=== PATIENT | male | born 1945 | race Caucasian/White ===

== ENCOUNTER 2017-04-26 14:02 | Outpatient (CLI) | payer MEDICARE, OTHER ==
--- NOTE | 2017-04-26 16:12 | RAD ---
MODIFIED BARIUM SWALLOW PERFORMED WITH SPEECH THERAPIST 04/26/17 HISTORY: Dysphagia with weight loss. History of previous cervical fusion. Patient was given thin barium by spoon and cup as well as nectar by spoon. Showed persistent residue , particularly in the vallecular region. There was penetration and aspiration with thin liquid and p enetration and possibly some minimal aspiration with the nectar thick liquid. IMPRESSION: Evidence of penetration and aspiration as discussed above. POS: EMELIA
== END 2017-04-26 14:03 | disposition home or self-care (01) ==
LOC: RAD 14:02
PROVIDERS: ATTEND Internal Medicine Gastroenterology
DX: R13.10 Dysphagia, unspecified (principal)
CPT/HCPCS: 74230; G8996-GN-CM; G8997-GN-CK

== ENCOUNTER 2017-05-08 07:58 | Outpatient (CLI) | payer MEDICARE, OTHER ==
[2017-05-08] MEDS ORDERED: Gadobenate Dimeglumine 529 MG/1 ML (20ML VIAL) ONE (09:00)
--- NOTE | 2017-05-08 10:41 | MRI ---
BRAIN MRI WITH AND WITHOUT CONTRAST: DATE: 08/08/16. COMPARISON: None. HISTORY: Lymphoma, difficulty swallowing. TECHNIQUE: Multiplanar, multisequence MR imaging of the brain provided with and without contrast. FINDINGS: The diffusion weighted imaging demonstrates no evidence for acute infarction. The axial gradient echo imaging demonstrates no evidence for intracranial hemorrhage. Incidental note is made of a cavum septum pellucidum. There are multiple subcentimeter scattered foci of increased signal intensity within the periventric ular deep and subcortical white matter, evidence of small-vessel disease. There is mild diffuse cer ebral volume loss. The regional bone marrow signal intensity appears within normal limits. The axial T2 weighted imaging demonstrates unremarkable signal intensity within the paranasal sinuse s and mastoid air cells. Arterial flow voids at the axial level of the skull base appear grossly un remarkable on the T2 weighted imaging. The post-contrast imaging demonstrates no abnormal enhanceme nt within the brain parenchyma. IMPRESSION: No acute findings. Small-vessel disease and mild cerebral volume loss noted. POS: [facility]
== END 2017-05-08 07:59 | disposition home or self-care (01) ==
LOC: SCSMRI 07:58
PROVIDERS: ATTEND Student in an Organized Health Care Education/Training Program
DX: R13.10 Dysphagia, unspecified (principal); R47.9 Unspecified speech disturbances; R53.83 Other fatigue; Z85.79 Personal history of other malignant neoplasms of lymphoid, hematopoietic and related tissues; R06.02 Shortness of breath; R53.1 Weakness; E53.8 Deficiency of other specified B group vitamins; E51.9 Thiamine deficiency, unspecified; E53.1 Pyridoxine deficiency; E55.9 Vitamin D deficiency, unspecified
CPT/HCPCS: 36415; 70553; 80053; 82164; 82306; 82550; 82607; 84155; 84165; 84207; 84425; 84443; 85025; 85652; 86038; 86140; 86334; 86592; 86618; A9579

== ENCOUNTER 2017-05-12 08:09 | Observation (INO) | payer MEDICARE, OTHER ==
[2017-05-12] MEDS ORDERED: CEFAZOLIN/Water 2 GM/20 ML SYRINGE ONE (08:53)
[2017-05-12] MEDS ORDERED: Promethazine HCl 25 MG/ML VIAL SLOW IVP PRN (10:47)
[2017-05-12] MEDS ORDERED: Ondansetron HCl/PF 4 MG/2 ML Vial IVP PRN (10:47)
[2017-05-12] MEDS ORDERED: Promethazine HCl 25 MG/ML VIAL IM PRN (10:47)
[2017-05-12] MEDS: Dextrose 5 % And 0.9 % NaCl 1,000 ML IV SCH (14:40)
[2017-05-12] MEDS ORDERED: Pancrelipase DR 12000 1 CAP FS PRN (15:39)
[2017-05-12] MEDS ORDERED: Sodium Bicarbonate Tab 325 MG TAB PER TUBE PRN (15:39)
[2017-05-12] MEDS ORDERED: Ondansetron ODT 4 MG TAB PO PRN (15:51)
[2017-05-12 15:56] VITALS: BMI 22.8
[2017-05-12] MEDS ORDERED: Amlodipine 5 MG TAB PER TUBE SCH (16:45)
[2017-05-12] MEDS: Tamsulosin HCl 0.4 MG CAP PO SCH (20:54)
[2017-05-12] MEDS: TICAGRELOR 90 MG TABLET PO SCH (20:54)
[2017-05-13] MEDS: Dextrose 5 % And 0.9 % NaCl 1,000 ML IV SCH ×2 (01:07→14:53)
[2017-05-13] MEDS: Levothyroxine Sodium 75 MCG TAB PO SCH (05:23)
[2017-05-13] MEDS ORDERED: Mirtazapine 15 MG TAB PO SCH (09:00)
[2017-05-13] MEDS: Aspirin 81 mg Enteric Coated Tablet PO SCH (09:04)
[2017-05-13] MEDS: Multivitamin W/ Minerals 1 TAB PO SCH (09:04)
[2017-05-13] MEDS: Venlafaxine HCl XR 75 MG CAP PO SCH (09:05)
[2017-05-13] MEDS: Amlodipine 5 MG TAB PO SCH (09:05)
[2017-05-13] MEDS: Bupropion 150 MG XL TAB PO SCH (09:05)
[2017-05-13] MEDS: TICAGRELOR 90 MG TABLET PO SCH ×2 (09:07→20:47)
[2017-05-13 13:06] LABS: #Basophils 0.1 thou/uL (0.0-0.2); #Eosinphils 0.1 thou/uL (0.0-0.7); #Monocytes 0.3 thou/uL (0.11-0.59); #Neutrophils 1.7 thou/uL (1.40-6.50); %Basophils 1.8 % (0.0-1.0); %Lymphocytes 32.3 % (21.0-51.0); %Monocytes 9.2 % (0.0-10.0); Hematocrit 30.1 % (42.0-52.0); Mean Platelet Volume 7.3 fL (7.4-10.4); Red Blood Cell (RBC) Count 2.99 mill/uL (4.70-6.10); White Blood Cell (WBC) Count 3.2 thou/uL (4.8-10.8)
[2017-05-13] MEDS: traMADol HCl 50 MG TAB PO PRN ×3 (14:55→21:55)
--- NOTE | 2017-05-13 18:23 | DIS ---
HOSPITAL COURSE: Mr. Willis was admitted to 23-hour observation last night after a PEG tube placemen t for oropharyngeal dysphagia. He has done well. His vital signs were stable. He and his und erstand how to use and take care of the PEG and have demonstrated that to the nurses. He has been s een by a dietitian. He was left recommendations for feedings, which they have begun. Plan will be discharged to home. Resume home medications, Jevity 5 cans per day 30-50 mL flushes before and afte r feeds. If Jevity is unavailable, I have told him to get Ensure Plus. He will follow with me in 2 weeks. If he has any pain, fever, or bleeding, I have asked him to call me immediately. Hospital c ourse is uneventful. He also has follow up with Neurology for oropharyngeal dysphagia which is felt to be a primary motor disorder with no history of stroke and normal EGD and with abnormal modified barium swallow.
[2017-05-13] MEDS: Tamsulosin HCl 0.4 MG CAP PO SCH (20:47)
[2017-05-13] MEDS ORDERED: Mirtazapine 15 MG TAB PER TUBE SCH (21:00)
[2017-05-14] MEDS: Levothyroxine Sodium 75 MCG TAB PO SCH (05:24)
[2017-05-14] MEDS: Bupropion 150 MG XL TAB PO SCH (09:55)
[2017-05-14] MEDS: Amlodipine 5 MG TAB PO SCH (09:56)
[2017-05-14] MEDS: TICAGRELOR 90 MG TABLET PO SCH (09:56)
[2017-05-14] MEDS: Multivitamin W/ Minerals 1 TAB PO SCH (09:57)
[2017-05-14] MEDS: Venlafaxine HCl XR 75 MG CAP PO SCH (09:57)
[2017-05-14] MEDS: Aspirin 81 mg Enteric Coated Tablet PO SCH (09:58)
[2017-05-14 12:59] VITALS: BP 134/72; TEMP 98.1
--- NOTE | 2017-05-16 09:19 | OP ---
DATE OF PROCEDURE: 05/12/2017 PROCEDURE: Esophagogastroduodenoscopy with percutaneous endoscopic gastrostomy tube placement. PREOPERATIVE DIAGNOSES: Oropharyngeal dysphagia and aspiration. POSTOPERATIVE DIAGNOSIS: Percutaneous endoscopic gastrostomy tube placements by Ponsky pull techniq ue. ANESTHESIA: TIVA. The patient was given Ancef 2 grams IV for prophylaxis. DESCRIPTION OF THE PROCEDURE: The patient was informed of the risks, benefits, possible complicatio ns of endoscopy including perforation, bleeding, reactions to medication and aspiration, informed co nsent was obtained. The patient brought to endoscopy suite where he was sedated in gradual fashion. Once he was comfortable, a bite block was placed in incisural orifice. The endoscope was through the esophagus, stomach and second and third portion of duodenum and slowly removed and adequately pl aced where PEG tube placement was identified by transillumination and finger indentation and a PEG t ube was placed by Ponsky pull technique under sterile conditions. The scope was removed. The patie nt tolerated the procedure well.
== END 2017-05-14 13:00 | disposition home or self-care (01) ==
LOC: SDC 08:09 → SURG A 10:54
PROVIDERS: ADMIT Internal Medicine Gastroenterology; ATTEND Internal Medicine Gastroenterology
PROC: 0DH63UZ Insertion of Feeding Device into Stomach, Percutaneous Approach (ICD-10-PCS; principal; 2017-05-12)
DX: R13.12 Dysphagia, oropharyngeal phase (principal); G47.33 Obstructive sleep apnea (adult) (pediatric); M10.9 Gout, unspecified; M19.90 Unspecified osteoarthritis, unspecified site; N40.0 Benign prostatic hyperplasia without lower urinary tract symptoms; K21.9 Gastro-esophageal reflux disease without esophagitis; E03.9 Hypothyroidism, unspecified; I25.10 Atherosclerotic heart disease of native coronary artery without angina pectoris; E78.5 Hyperlipidemia, unspecified; I10 Essential (primary) hypertension; D64.9 Anemia, unspecified; Z99.89 Dependence on other enabling machines and devices; Z79.82 Long term (current) use of aspirin; Z79.899 Other long term (current) drug therapy; Z88.1 Allergy status to other antibiotic agents; Z88.2 Allergy status to sulfonamides; Z98.1 Arthrodesis status; Z96.653 Presence of artificial knee joint, bilateral; Z95.5 Presence of coronary angioplasty implant and graft; Z90.49 Acquired absence of other specified parts of digestive tract; Z98.890 Other specified postprocedural states; Z87.442 Personal history of urinary calculi
CPT/HCPCS: 43246; 85014; 85018; 85025; 96361 ×2; 96374; 96376 ×2; G0378 ×2; 36415; G8996-GN-CM; G8997-GN-CM; J2270; Q0162

== ENCOUNTER 2017-09-04 00:46 | Inpatient (IN) | payer MEDICARE, OTHER ==
[2017-09-04 01:46] LABS: INR-International Normal Ratio 1.1; Mean Corpuscular HGB CONC 35.3 g/dL (32.0-36.0); Mean Corpuscular Hemoglobin 36.5 pg (27.0-31.0); Prothrombin Time 14.2 SEC (12.0-14.7); RBC Distribution Width 14.2 % (11.5-14.5); White Blood Cell (WBC) Count 2.4 thou/uL (4.8-10.8)
[2017-09-04 01:47] LABS: PTT 33.1 SEC (22.9-36.1)
[2017-09-04 01:58] LABS: #Lymphocytes 0.8 thou/uL (1.20-3.40); #Monocytes 0.3 thou/uL (0.11-0.59); #Neutrophils 1.4 thou/uL (1.40-6.50); %Eosinophils 0.9 % (0.0-10.0); %Lymphocytes 31.9 % (21.0-51.0); %Monocytes 10.5 % (0.0-10.0); %Neutrophils 56.7 % (42.0-75.0); Mean Platelet Volume 7.7 fL (7.4-10.4); PLT Morphology Comment Appears Decreased; Platelet Count 60 thou/uL (130-400)
[2017-09-04 02:02] LABS: ALT (SGPT) 35 U/L (8-55); AST (SGOT) 47 U/L (5-34); Albumin 4.5 g/dL (3.4-4.8); Alkaline Phosphatase 97 U/L (40-150); Anion Gap 15 mmol/L (10-20); BUN (Urea Nitrogen) 29 mg/dL (8.4-25.7); Bilirubin, Total 1.8 mg/dL (0.2-1.2); Calc. Creatinine Clearance 0 mL/min (70-130); Calcium 9.5 mg/dL (7.8-10.44); Carbon Dioxide 21 mmol/L (23-31); Chloride 103 mmol/L (98-107); Estimated GFR-MDRD 45; Globulin 2.2 g/dL (2.4-3.5); Glucose 88 mg/dL (83-110); Potassium 4.1 mmol/L (3.5-5.1); Protein, Total 6.7 g/dL (5.8-8.1); Sodium 135 mmol/L (136-145)
[2017-09-04] MEDS ORDERED: Promethazine HCl 25 MG/ML VIAL ONE (02:27)
[2017-09-04] MEDS ORDERED: Acetaminophen 325 MG TAB ONE (02:27)
[2017-09-04] MEDS ORDERED: Cefepime 2 GM/10 ML SYR ONE (03:45)
[2017-09-04 04:06] LABS: Bilirubin Negative (Negative); Blood, Urine Negative (Negative); Clarity CLEAR (Clear); Glucose, Urine (Dipstick) Negative (Negative); Leukocyte Negative (Negative); Nitrite Negative (Negative); Protein, Urine (Dipstick) Negative (Neg-Trace); Specific Gravity, Urine 1.018 (1.002-1.036)
[2017-09-04] MEDS ORDERED: Levothyroxine Sodium 75 MCG TAB PO SCH (06:15)
[2017-09-04] MEDS: Sodium Chloride 0.9% 1,000 ML IV SCH (06:30)
--- NOTE | 2017-09-04 06:30 | HP ---
REASON FOR ADMISSION: Fever. HISTORY OF PRESENT ILLNESS: The patient gives history of fever, sore throat, and cough from the last two days. He also thinks that he has some fluid in his left ear, which pops with his mouth opening and can feel his heart beat in his left ear. The cough is dry with no expectoration. The patient has taken his flu shot. He has history of lymphoma and has had stem cell transplant done at [facility]. Locally, he follows up with Dr. Meléndez. No complaints of wounds or ulcers. Still has a PEG tube. PAST MEDICAL AND SURGICAL HISTORY: History of lymphoma and has had stem cell transplant for the same at [facility]. Hypertension, coronary artery disease , history of diverticulosis, dyslipidemia, nephrolithiasis and the stem cell transplant was done in 08/2015, shoulder surgery, colostomy placement and removal, neck surgery x2, bilateral knee surgery, anxiety, depression, Med MediPort placement plus removal. PERSONAL HISTORY: Does not abuse alcohol or drugs. Lives with his . No history of smoking. FAMILY HISTORY: No history of premature cardiac issues or GI disease. Mother at the age of 75 years and had coronary artery disease. Father at the age of 74 years and has had history of emphysema. CURRENT MEDICATIONS: The patient is on Brilinta 90 mg p.o. twice daily, Flomax 0.4 mg p.o. daily, Remeron 15 mg p.o. daily, Protonix 40 mg p.o. twice daily, Crestor 10 mg p.o. daily, Synthroid 75 mcg p.o. daily, Centrum Silver 1 tab once daily, bupropion extended release 300 mg p.o. daily, Norvasc 5 mg p.o. daily. ALLERGIES: BACTRIM and VANCOMYCIN. CODE STATUS: FULL. Power of securities attorney is his , Ms. Susie Willis, the number to reach is [phone]. REVIEW OF SYSTEMS: The following complete review of systems was negative, unless otherwise mentioned in the HPI or below: Constitutional: Weight loss or gain, ability to conduct usual activities. Skin: Rash, itching. Eyes: Double vision, pain. ENT/Mouth: Nose bleeding, neck stiffness, pain, tenderness. Cardiovascular: Palpitations, dyspnea on exertion, orthopnea. Respiratory: Shortness of breath, wheezing, cough, hemoptysis, fever or night sweats. Gastrointestinal: Poor appetite, abdominal pain, heartburn, nausea, vomiting, constipation, or diarrhea. Genitourinary: Urgency, frequency, dysuria, nocturia. Musculoskeletal: Pain, swelling. Neurologic/Psychiatric: Anxiety, depression. Allergy/Immunologic: Skin rash, bleeding tendency. PHYSICAL EXAMINATION: GENERAL: The patient is a 72-year-old male who is currently not in any acute distress. VITAL SIGNS: Blood pressure 158/76, pulse 70 per minute, respiratory rate 18 per minute, temperature 98.7 degrees Fahrenheit, and saturating 97% on room air. NECK: Supple, no elevated JVD. HEENT: Eyes: Extraocular muscles intact. Pupils reacting to light. Oral cavity: Mucous membranes are dry. There is mild congestion in the posterior pharynx. No exudates seen. CARDIOVASCULAR: S1, S2 heard. Regular rhythm. RESPIRATORY: Air entry 1+ bilateral. EXTREMITIES: No ischemic ulcerations or gangrene. CENTRAL NERVOUS SYSTEM: No gross focal deficits seen. The patient is alert, awake, oriented well. PSYCHIATRIC: The patient's mood is euthymic. No hallucinations or delusions. LABORATORY DATA: White count of 2.4, H and H 11 and 31, platelet count is 60, MCV is 103 with 56% neutrophils. PT, INR, PTT within normal limits. Serum bicarbonate 21, BUN 29, creatinine 1.5, glucose 88, total bilirubin 1.8, AST 47 , ALT 35. Albumin is 4.5. Influenza antigen A and B are negative. Chest x- ray by my review shows no acute cardiopulmonary abnormalities. CLINICAL IMPRESSION AND PLAN: The patient will be admitted to oncology floor for fever with history of stem cell transplant and what appears to be a viral syndrome. We will obtain viral PCR for respiratory pathogens. He will be on cefepime and fernandez cultures have been obtained in the ER. We will continue his Norvasc, bupropion, Synthroid, Remeron, Flomax, Crestor, Brilinta as before. We will continue to closely monitor him for any hemodynamic compromise. ANTONIO
--- NOTE | 2017-09-04 07:51 | RAD ---
CHEST PA AND LATERAL: Date: 09/04/17 HISTORY: 72-year-old male with history of cough, sore throat, and left ear discomfort. COMPARISON: 06/11/16. FINDINGS: Heart size is normal. The lungs are clear. Postoperative changes in the region of the right clavicle and cervical spine. No confluent pneumonia, overt edema, or pleural effusion. IMPRESSION: No acute intrathoracic disease. Stable from prior study. POS: [facility]
[2017-09-04] MEDS: Multivitamin W/ Minerals 1 TAB PO SCH ×2 (09:19→09:27)
[2017-09-04] MEDS: Rosuvastatin 10 MG TAB PO SCH (09:19)
[2017-09-04] MEDS: Famotidine 20 MG TAB PO SCH (09:19)
[2017-09-04] MEDS: Bupropion 150 MG XL TAB PO SCH (09:19)
[2017-09-04] MEDS: Amlodipine 5 MG TAB PO SCH (09:20)
[2017-09-04] MEDS: Ondansetron HCl/PF 4 MG/2 ML Vial IVP PRN (12:04)
[2017-09-04] MEDS: TICAGRELOR 90 MG TABLET PO SCH ×2 (12:04→20:56)
--- NOTE | 2017-09-04 13:12 | CON ---
DATE OF CONSULTATION: 09/04/2017 REASON FOR CONSULTATION: B-cell lymphoma with a stem cell transplant. HISTORY OF PRESENT ILLNESS: Mr. 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 He did have a flu screen, which was negative. Chest x-ray showed no acute process. Routine lab showed a WBC of 2.4, hemoglobin of 11 and a platelet count of 60,000. He had 56% neutrophils, 32% lymphocytes, and 10% monocytes. He was admitted for empiric antibiotics and fever. The patient has been in remission for his lymphoma since his stem cell transplant. Most recently, he has had dysphagia and aspiration requiring a feeding tube. He has seen a neurologist and is being worked up for Roro Gehrig's disease. Since arrival, he has been afebrile. He does have a cough and complaints of sore throat. PAST MEDICAL HISTORY: 1. B-cell lymphoma, status post chemotherapy and autologous stem cell transplant. 2. Coronary artery disease with stent placement. 3. Hypothyroidism. 4. Chronic renal insufficiency. 5. Depression. 6. Hypertension. 7. Hyperlipidemia. 8. Gastroesophageal reflux disease. PAST SURGICAL HISTORY: 1. Cardiac stent placement. 2. Stem cell transplant. 3. Knee replacement. 4. Partial hemicolectomy for diverticulitis. ALLERGIES: To SULFA. HOME MEDICATIONS: 1. Amlodipine 5 mg daily. 2. Bupropion 300 mg daily. 3. Pristiq 50 mg daily. 4. Synthroid 75 mcg daily. 5. Mirtazapine 15 mg daily. 6. Protonix 40 mg b.i.d. 7. Crestor 10 mg daily. 8. Flomax 0.4 mg daily. 9. Brilinta 90 mg b.i.d. FAMILY HISTORY: Noncontributory. SOCIAL HISTORY: He is , has two children, lives with his spouse. No alcohol, tobacco or illicit drug use. REVIEW OF SYSTEMS: Ten point review of systems is negative except for noted in HPI. PHYSICAL EXAMINATION: VITAL SIGNS: Temperature is 97.4, pulse is 60, respiratory rate 18, blood pressure is 134/74, he is 96% on room air. GENERAL: Well-developed, well-nourished male, in no acute distress. HEENT: Normocephalic, atraumatic. Pupils equal and reactive to light. NECK: Supple. CARDIOVASCULAR: Regular rate and rhythm. LUNGS: Clear. ABDOMEN: Soft, nontender, bowel sounds are positive. He has got a PEG tube in place. EXTREMITIES: No clubbing, cyanosis or edema. SKIN: No rash. HEMATOLOGIC: No petechia or purpura. NEUROLOGIC: Nonfocal. PSYCHIATRIC: The patient is alert and oriented and appropriate. PERTINENT LABORATORY DATA AND X-RAYS: Current WBCs are 2.4, hemoglobin 11, hematocrit 31.1, platelet count is 60,000, neutrophils are 57%, lymphocytes 32% . ANC is 1.4. PT is 14.2, INR is 1.1, PTT is 33.1. Sodium is 135, potassium 4.1, chloride 103, CO2 is 21, BUN 29, creatinine is 1.54. Lactic acid is 1.9, calcium 9.5, total bilirubin is 1.8, AST is 47, ALT is 35, alkaline phosphatase is 97. Serum total protein 6.7, albumin 4.5, globulin 2.2. Urine is negative for bacteria. Chest x-ray is negative for acute process. ASSESSMENT: 1. Febrile illness. 2. Chronic pancytopenia without neutropenia from stem cell transplant. 3. B cell lymphoma with autologous stem cell transplant in 2016. 4. Dysphagia with negative ENT evaluation. DISCUSSION: The patient has been started on empiric antibiotics and IV fluids and is feeling somewhat better. He has been afebrile since admission. I believe that ID has been consulted for their opinion. The patient's baseline ANC is around 2.0. He is currently 1.4. He is on neutropenic precautions. His kidney function is at baseline as well. Hopefully, he will improve over the next 24-48 hours and be able to be discharged home. We will provide supportive care. ANTONIO
[2017-09-04 13:34] VITALS: BMI 23.0
--- NOTE | 2017-09-04 14:35 | PDOC.PN ---
- Subjective Encounter Start Date: 09/04/17 Encounter Start Time: 14:34 Subjective: Seen and examined feeling same - Objective Resuscitation Status: Resuscitation Status FULL:Full Resuscitation Vital Signs & Weight: Vital Signs (12 hours) Temp Pulse Resp BP BP Pulse Ox 09/04/17 12:00 98.6 F 75 20 163/82 H 97 09/04/17 09:20 60 134/74 09/04/17 08:00 97.4 F L 88 18 116/85 96 09/04/17 05:35 97.6 F 65 18 128/71 98 Weight Admit Weight 156 lb Weight 156 lb Result Diagrams: 09/04/17 01:15 09/04/17 00:55 Phys Exam - Physical Examination Constitutional: NAD HEENT: PERRLA, moist MMs, sclera anicteric, TM's clear Neck: no nodes, no JVD, supple, full ROM Respiratory: no wheezing, no rales, no rhonchi, clear to auscultation bilateral Cardiovascular: RRR, no significant murmur, no rub Gastrointestinal: soft, non-tender, no distention, positive bowel sounds Musculoskeletal: no edema, pulses present Dx/Plan (1) Flu Code(s): J11.1 - FLU DUE TO UNIDENTIFIED INFLUENZA VIRUS W OTH RESP MANIFEST Status: Acute (2) Leukopenia Code(s): D72.819 - DECREASED WHITE BLOOD CELL COUNT, UNSPECIFIED Status: Acute (3) Stem cells transplant status Code(s): Z94.84 - STEM CELLS TRANSPLANT STATUS Status: Acute (4) Pancytopenia Code(s): D61.818 - OTHER PANCYTOPENIA Status: Acute Comment: secd to chemo and acute illness (5) Coronary artery disease Code(s): I25.10 - ATHSCL HEART DISEASE OF [place] CORONARY ARTERY W/O ANG PCTRS Status: Chronic Qualifiers: (6) Hypertension Code(s): I10 - ESSENTIAL (PRIMARY) HYPERTENSION Status: Chronic Qualifiers: (7) Lymphoma Status: Chronic Qualifiers: - Plan plan discussed w/ family, continue antibiotics, PT/OT, geriatric social worker, respiratory therapy Start Tamiflu * .
[2017-09-04] MEDS ORDERED: Oseltamivir 75 MG CAP PO SCH (15:30)
[2017-09-04] MEDS: Cefepime 1 GM in Sodium Chloride 0.9% 100 ML IVPB SCH (17:44)
--- NOTE | 2017-09-04 20:21 | CON ---
DATE OF CONSULTATION: 09/04/2017 REASON FOR CONSULTATION: Respiratory infection. HISTORY OF PRESENT ILLNESS: Mr. Willis is a 72-year-old patient who has a history of lymphoma in remission after stem cell transplantation in 2015. He was admitted on 05/2016 with diarrhea and abdominal pain and renal insufficiency. At that time, he had a C. diff antigen positivity, but toxin negative and there was no evidence of colitis on colonoscopy. He also had a drug eruption felt to be secondary to antimicrobials. In 04/2017, he was admitted after a PEG tube placement for management of oropharyngeal dysphagia. This was felt to be secondary to neurological issue. This time, he is admitted with a 1 week history of cough and then fever and sore throat, had some fluid in the left ear with eustachian tube dysfunction. No sputum production. His last influenza vaccine was about a year ago and some headaches, some sore throat. No back pain, no chest pain, no abdominal pain, no diarrhea, no genitourinary symptoms, no joint symptoms or skin disorder. PAST MEDICAL AND SURGICAL HISTORY: Lymphoma with stem cell transplant, in remission after treatment; hyperlipidemia; nephrolithiasis; colostomy; gastrostomy placement and removal; MediPort placement and removal; never smoker and also history of coronary artery disease. FAMILY HISTORY: Noncontributory. ALLERGIES: BACTRIM and VANCOMYCIN with rash. MEDICATIONS: Brilinta, Flomax, Remeron, Protonix, Crestor, Synthroid, Centrum Silver, bupropion and Norvasc. Here, patient is receiving Tylenol, Norvasc, Wellbutrin, cefepime, Pepcid, Robitussin, Theragran, Synthroid, Remeron, Zofran , Tamiflu and Brilinta. PHYSICAL EXAMINATION: VITAL SIGNS: T-max 98.6, blood pressure 160/82, pulse is 75, respirations 18- 20 and O2 sat 97%. SKIN: With peripheral IV access. No Bahena catheter. He is voiding spontaneously without trouble. No lymphadenopathy. HEENT: Ocular movements are conjugate. Oral cavity is somewhat dry. No thrush. NECK: Supple. No jugular venous distention or carotid bruits. LUNGS: With symmetric air entry with somewhat coarse breath sounds. HEART: S1 and S2, regular rate. ABDOMEN: Soft and not distended. A few inspiratory crackles on the left base in the lung. GENITAL: Normal. EXTREMITIES: No joint inflammatory activity. Able to move extremities equally. NEUROLOGIC: Cognitive function appears to be intact. LABORATORY AND IMAGING DATA: Sodium 135, creatinine 1.54. His baseline creatinine ranges from 1.42-2.13. White cell count 2.4, hemoglobin 11, MCV 103 , platelets 60, 56% neutrophils and 31% lymphocytes. INR 1.1. Urinalysis is normal. Influenza A and B antigen panel was negative, but the influenza PCR was positive for influenza B virus. Chest x-ray: No active intrathoracic disease and pathology surgical specimen, no residual carcinoma. ASSESSMENT: 1. B-cell lymphoma, in remission after stem cell transplant. 2. Respiratory symptoms with fever and influenza B infection. DISCUSSION: The patient now with influenza B infection and will continue on Tamiflu. Cefepime has been started and if blood cultures remain negative, would consider discontinuing cefepime. He is at risk of development of post influenza bacterial complications. MTDD
[2017-09-04] MEDS: Oseltamivir 75 MG CAP PO SCH (20:56)
[2017-09-04] MEDS: Mirtazapine 15 MG TAB PO SCH (20:56)
[2017-09-04] MEDS: Tamsulosin HCl 0.4 MG CAP PO SCH (20:56)
[2017-09-05] MEDS: Acetaminophen 325 MG TAB PO PRN (01:05)
[2017-09-05] MEDS: Sodium Chloride 0.9% 1,000 ML IV SCH ×2 (02:14→21:30)
[2017-09-05] MEDS: Guaifenesin DM 100-10/5 ML UDCUP PO PRN ×3 (02:24→21:29)
[2017-09-05] MEDS ORDERED: Cefepime 1 GM, Admixture Fee 1 EACH in Sterile Water 10 ML SLOW IVP SCH (05:00)
[2017-09-05 06:02] LABS: #Lymphocytes 0.9 thou/uL (1.20-3.40); #Monocytes 0.3 thou/uL (0.11-0.59); #Neutrophils 1.6 thou/uL (1.40-6.50); %Basophils 0.4 % (0.0-1.0); %Eosinophils 0.4 % (0.0-10.0); %Lymphocytes 31.9 % (21.0-51.0); %Monocytes 11.2 % (0.0-10.0); %Neutrophils 56.1 % (42.0-75.0); Hemoglobin 9.1 g/dL (14.0-18.0); Mean Corpuscular HGB CONC 34.5 g/dL (32.0-36.0); Mean Corpuscular Hemoglobin 35.3 pg (27.0-31.0); Mean Platelet Volume 8.1 fL (7.4-10.4); Platelet Count 48 thou/uL (130-400); RBC Distribution Width 14.3 % (11.5-14.5); Red Blood Cell (RBC) Count 2.57 mill/uL (4.70-6.10); White Blood Cell (WBC) Count 2.9 thou/uL (4.8-10.8)
[2017-09-05 06:19] LABS: Anion Gap 12 mmol/L (10-20); BUN (Urea Nitrogen) 31 mg/dL (8.4-25.7); Calc. Creatinine Clearance 43 mL/min (70-130); Calcium 8.4 mg/dL (7.8-10.44); Carbon Dioxide 21 mmol/L (23-31); Chloride 106 mmol/L (98-107); Estimated GFR-MDRD 43; Glucose 101 mg/dL (83-110); Potassium 3.8 mmol/L (3.5-5.1); Sodium 135 mmol/L (136-145)
[2017-09-05] MEDS: Levothyroxine Sodium 75 MCG TAB PO SCH ×2 (06:40→06:59)
[2017-09-05] MEDS: Cefepime 1 GM in Sodium Chloride 0.9% 100 ML IVPB SCH (08:44)
[2017-09-05] MEDS: Amlodipine 5 MG TAB PO SCH (08:58)
[2017-09-05] MEDS: Bupropion 150 MG XL TAB PO SCH (08:59)
[2017-09-05] MEDS: Famotidine 20 MG TAB PO SCH (08:59)
[2017-09-05] MEDS: Rosuvastatin 10 MG TAB PO SCH (09:00)
[2017-09-05] MEDS: Multivitamin W/ Minerals 1 TAB PO SCH (09:00)
[2017-09-05] MEDS: TICAGRELOR 90 MG TABLET PO SCH ×2 (09:00→21:29)
[2017-09-05] MEDS: Oseltamivir 75 MG CAP PO SCH ×2 (09:00→21:29)
--- NOTE | 2017-09-05 12:23 | PDOC.PN ---
- Subjective Encounter Start Date: 09/05/17 Encounter Start Time: 12:18 CC: fLU SUB: pt c/o fatigue, denies nausea or vomiting - Objective Resuscitation Status: Resuscitation Status FULL:Full Resuscitation Vital Signs & Weight: Vital Signs (12 hours) Temp Pulse Resp BP BP Pulse Ox 09/05/17 08:58 80 147/82 H 09/05/17 08:08 98.7 F 78 16 147/82 H 94 L 09/05/17 07:44 98.7 F 78 16 94 L 09/05/17 04:48 99.2 F 78 18 113/69 95 09/05/17 00:45 100.2 F H 79 16 128/74 95 Weight Admit Weight 156 lb Weight 156 lb I&O: 09/04/17 09/05/17 09/06/17 06:59 06:59 06:59 Intake Total 1860 Output Total 2125 Balance -265 Result Diagrams: 09/05/17 05:12 09/05/17 05:12 Dx/Plan - Plan Constitutional: NAD, sitting on bed HEENT: PERRLA, moist MMs, sclera anicteric, TM's clear Neck: no nodes, no JVD, supple, full ROM Respiratory: no wheezing, no rales, no rhonchi, clear to auscultation bilateral , normal effort Cardiovascular: RRR, no significant murmur, no rub Gastrointestinal: soft, non-tender, no distention, positive bowel sounds Musculoskeletal: no edema, pulses present Dx/Plan (1) Flu Code(s): J11.1 - FLU DUE TO UNIDENTIFIED INFLUENZA VIRUS W OTH RESP MANIFEST Status: Acute (2) Leukopenia Code(s): D72.819 - DECREASED WHITE BLOOD CELL COUNT, UNSPECIFIED Status: Acute (3) Stem cells transplant status Code(s): Z94.84 - STEM CELLS TRANSPLANT STATUS Status: Acute (4) Pancytopenia Code(s): D61.818 - OTHER PANCYTOPENIA Status: Acute Comment: secd to chemo and acute illness (5) Coronary artery disease Code(s): I25.10 - ATHSCL HEART DISEASE OF [place] CORONARY ARTERY W/O ANG PCTRS Status: Chronic Qualifiers: (6) Hypertension Code(s): I10 - ESSENTIAL (PRIMARY) HYPERTENSION Status: Chronic Qualifiers: (7) Lymphoma Status: Chronic Qualifiers: pLAN: cONTINUE IV antibiotics. currently on meropenem and tamiflu Heme on board, hgb and wbc count trending down. Monitor closely Appreciate ID input Monitor counts closely Repeat CBC with diff & BMP in am case d/w pt & RN
--- NOTE | 2017-09-05 14:29 | PRG ---
DATE OF SERVICE: 09/05/2017 SUBJECTIVE: Still coughing spells, having difficulty in expectoration because of hypopharyngeal pain , laryngeal pain, mild dyspnea, no chest pain, no abdominal pain. OBJECTIVE: VITAL SIGNS: T-max 100.2 earlier today, currently 97.1, BP 120/70, pulse 81, respirations 16, O2 sat 96%. GENERAL: He appears in distress from the respiratory difficulties, particularly the need to cough an d having pain in the hypopharyngeal area. Awake, oriented. HEENT: Oral cavity did not appear inflamed. There is no erythema, no lesions. He does have tendern ess in the area below the visible area in the posterior oropharynx. LUNGS: With coarse breath sounds with a few crackles at the left base. HEART: S1, S2, regular rate. ABDOMEN: Soft and not distended. EXTREMITIES: Moves all extremities equally. LABORATORY DATA: White cell count 2.9, hemoglobin 9.1, platelets 48,000. Sodium 135, creatinine 1.5 9, bilirubin 1.8, AST 47. Two sets of blood cultures were negative. Chest x-ray on admission, no ac dominick intrathoracic disease. ASSESSMENT AND PLAN: B-cell lymphoma in remission after stem cell transplant and now influenza B inf ection with respiratory symptoms, laryngeal pain, difficulty with cough. Reason for laryngeal pain m aybe the laryngitis complication associated with influenza B infection. Bacterial complication of la ryngitis is particularly a concern. We will add vancomycin to the current regimen since a lot of tho se are from local oropharyngeal Streptococci and switch him to meropenem from the cefepime adjusted f or renal function.
[2017-09-05] MEDS: Tamsulosin HCl 0.4 MG CAP PO SCH (21:28)
[2017-09-05] MEDS: Mirtazapine 15 MG TAB PO SCH (21:28)
[2017-09-05] MEDS ORDERED: Meropenem 1 GM in Sodium Chloride 0.9% 100 ML IVPB SCH (22:00)
[2017-09-05] MEDS: Meropenem 1 GM in Sterile Water 20 ML SLOW IVP SCH (22:48)
[2017-09-06] MEDS: Guaifenesin DM 100-10/5 ML UDCUP PO PRN ×2 (03:30→14:51)
[2017-09-06] MEDS: Acetaminophen 325 MG TAB PO PRN (03:30)
[2017-09-06 05:31] LABS: Anion Gap 10 mmol/L (10-20); BUN (Urea Nitrogen) 31 mg/dL (8.4-25.7); Calc. Creatinine Clearance 43 mL/min (70-130); Calcium 8.3 mg/dL (7.8-10.44); Carbon Dioxide 22 mmol/L (23-31); Chloride 110 mmol/L (98-107); Estimated GFR-MDRD 43; Glucose 125 mg/dL (83-110); Potassium 3.9 mmol/L (3.5-5.1); Sodium 138 mmol/L (136-145)
[2017-09-06 05:41] LABS: Band 12 % (5-11); Eosinophils 1 % (0-10); Hemoglobin 8.8 g/dL (14.0-18.0); Lymphocytes 32 % (21-51); MDiff Complete? YES; Mean Corpuscular HGB CONC 35.7 g/dL (32.0-36.0); Mean Corpuscular Hemoglobin 36.7 pg (27.0-31.0); Mean Platelet Volume 8.4 fL (7.4-10.4); Monocytes 6 % (0-10); Neutrophil 47 % (42-75); PLT Morphology Comment Appears Decreased; Platelet Count 48 thou/uL (130-400); Reactive Lymphocytes 2 % (0-10); Red Blood Cell (RBC) Count 2.39 mill/uL (4.70-6.10); White Blood Cell (WBC) Count 2.7 thou/uL (4.8-10.8)
[2017-09-06] MEDS: Levothyroxine Sodium 75 MCG TAB PO SCH (06:12)
[2017-09-06] MEDS: Meropenem 1 GM in Sterile Water 20 ML SLOW IVP SCH ×3 (06:13→23:08)
--- NOTE | 2017-09-06 08:00 | PDOC.PN ---
- Subjective Encounter Start Date: 09/06/17 Encounter Start Time: 14:45 Subjective: sore throat worse, continued cough productive of yellow sputum - Objective Resuscitation Status: Resuscitation Status FULL:Full Resuscitation MAR Reviewed: Yes Vital Signs & Weight: Vital Signs (12 hours) Temp Pulse Resp BP Pulse Ox 09/06/17 07:00 97.3 F L 66 18 09/06/17 04:15 98.4 F 69 18 125/73 97 09/06/17 00:31 99.4 F 75 18 131/70 95 09/05/17 20:57 98.6 F 74 18 122/66 95 09/05/17 20:00 98.6 F 74 18 95 Weight Admit Weight 156 lb Weight 156 lb I&O: 09/05/17 09/06/17 09/07/17 06:59 06:59 06:59 Intake Total 1860 480 Output Total 2125 950 Balance -265 470 Result Diagrams: 09/06/17 04:25 09/06/17 04:25 Phys Exam - Physical Examination Constitutional: NAD HEENT: moist MMs, oral pharynx no lesions Respiratory: no wheezing, no rhonchi rales in right base Cardiovascular: RRR, no significant murmur Gastrointestinal: soft, non-tender, positive bowel sounds Musculoskeletal: no edema Neurological: non-focal, moves all 4 limbs Psychiatric: normal affect, A&O x 3 Dx/Plan (1) Influenza B Code(s): J10.1 - FLU DUE TO OTH IDENT INFLUENZA VIRUS W OTH RESP MANIFEST Status: Acute Comment: on Tamiflu, broad spectrum abx (Meropenem) for possible post flu bacterial infection, Dr. Steven following (2) Leukopenia Code(s): D72.819 - DECREASED WHITE BLOOD CELL COUNT, UNSPECIFIED Status: Acute (3) Stem cells transplant status Code(s): Z94.84 - STEM CELLS TRANSPLANT STATUS Status: Acute (4) Chronic renal failure, stage 3 (moderate) Code(s): N18.3 - CHRONIC KIDNEY DISEASE, STAGE 3 (MODERATE) Status: Chronic Comment: Creatinine around baseline (5) Dysphagia Code(s): R13.10 - DYSPHAGIA, UNSPECIFIED Status: Acute (6) Pancytopenia Code(s): D61.818 - OTHER PANCYTOPENIA Status: Acute Comment: secd to chemo and acute illness, H/H trending down, WBC up a bit (7) S/P percutaneous endoscopic gastrostomy (PEG) tube placement Code(s): Z93.1 - GASTROSTOMY STATUS Status: Chronic (8) Coronary artery disease Code(s): I25.10 - ATHSCL HEART DISEASE OF [place] CORONARY ARTERY W/O ANG PCTRS Status: Chronic Qualifiers: (9) Hypertension Code(s): I10 - ESSENTIAL (PRIMARY) HYPERTENSION Status: Chronic Qualifiers: (10) Lymphoma Status: Chronic Qualifiers: - Plan cont current plan of care, continue antibiotics, out of bed/ambulate, DVT proph w/SCDs Add chloraseptic spray for sore throat * . - Discharge Day Encounter end time: 15:00
[2017-09-06] MEDS: Amlodipine 5 MG TAB PO SCH (08:27)
[2017-09-06] MEDS: Famotidine 20 MG TAB PO SCH (08:28)
[2017-09-06] MEDS: Bupropion 150 MG XL TAB PO SCH (08:28)
[2017-09-06] MEDS: Fluconazole In NaCl,Iso-Osm 100 MG in Admixture Fee 2 EACH IVPB SCH (08:28)
[2017-09-06] MEDS: TICAGRELOR 90 MG TABLET PO SCH ×2 (08:29→20:57)
[2017-09-06] MEDS: Rosuvastatin 10 MG TAB PO SCH (08:29)
[2017-09-06] MEDS: Oseltamivir 75 MG CAP PO SCH ×2 (08:29→20:56)
[2017-09-06] MEDS: Multivitamin W/ Minerals 1 TAB PO SCH (08:29)
--- NOTE | 2017-09-06 10:05 | PQF ---
CLINICAL DOCUMENTATION IMPROVEMENT CLARIFICATION FORM: ICD-10 Updated PLEASE DO AN ADDENDUM TO THE PROGRESS NOTE WITH ANY DOCUMENTATION UPDATES OR ADDITIONS AND CARRY THROUGH TO DC SUMMARY. THANK YOU. DATE: 09/06 ATTN: DR. PHUONG DU Please exercise your independent, professional judgment in responding to the clarification form. Clinical indicators are provided on the bottom of this form for your review. Please check appropriate box(s): Conflicting documentation was noted in the Medical Record, please clarify if patient is being treated/monitored for: [ ] Pancytopenia secondary to chemo & acute illness (diagnosis #1) [ X ] Chronic Pancytopenia without neutropenia from stem cell transplant ( diagnosis #2) [ ] Other diagnosis [ ] Unable to determine For continuity of documentation, please document condition throughout progress notes and discharge summary. Thank You. CLINICAL INDICATORS - SIGNS / SYMPTOMS/ LABS ATTENDING PHYSICIAN PN DATED 09/04, & : DX/PLAN: 4). PANCYTOPENIA SECONDARY TO CHEMO & ACUTE ILLNESS ONCOLOGY CONSULT DOCUMENTATION 09/04: HX OF PRESENT ILLNESS: HE HAS BEEN IN REMISSION SINCE HIS STEM CELL TRANSPLANT. PAST MEDICAL HX: 1. B CELL LYMPHOMA, S/P CHEMOTHERAPY & AUTOLOGOUS STEM CELL TRANSPLANT. ASSESSMENT: 2. CHRONIC PANCYTOPENIA WITHOUT NEUTROPENIA FROM STEM CELL TRANSPLANT RISK FACTORS: HX OF B CELL LYMPHOMA, IN REMISSION, S/P STEM CELL TRANSPLANT IMMUNOCOMPROMISED INFLUENZA B TREATMENT: ONCOLOGY CONSULT INFECTIOUS DISEASE CONSULT SERIAL LABS (09/04 - PRESENT) IV ANTIBIOTICS (MEROPENEM 09/05 - PRESENT) THANK YOU! Staci (This form is maintained as a part of the permanent medical record) 2014 [employer]. All Rights Reserved [facility]
[2017-09-06] MEDS ORDERED: ISOVUE-370 76%-LOCM 1 ML ONE (13:16)
[2017-09-06] MEDS ORDERED: Chloraseptic Spray 180 ml Bottle PO PRN (15:39)
[2017-09-06] MEDS: Sodium Chloride 0.9% 1,000 ML IV SCH ×2 (17:32→23:23)
--- NOTE | 2017-09-06 18:09 | CT ---
CT NECK WITH CONTRAST: 09/06/17 Multiple axial tomograms obtained through the neck with IV enhancement. HISTORY: Sore throat. Assess for abscess. FINDINGS: Nasopharynx is unremarkable. Oropharynx is unremarkable. There is no evidence of tonsillar enlargement. There is no evidence of pe ritonsillar abscess. Hypopharynx is unremarkable. The larynx is not well evaluated. There is blurring at the level of the larynx and vocal cords. The lesion at the larynx and vocal cords cannot be exclu ded on this study. The health coordinator space, parapharyngeal space, and retropharyngeal space unremarkable . There is a focal area of asymmetric density seen in the oropharynx posteriorly on the left. Mucosal l esion at this location cannot be excluded and recommend this be evaluated with direct examination. Cervical spine shows degenerative and postoperative change. No adenopathy seen. IMPRESSION: 1. No evidence of peritonsillar abscess or fluid collection. 2. There is an area of asymmetric density in the tonsillar fossa on the left in the oropharynx. Recommend direct evaluation to exclude a mucosal lesion. 3. The larynx and focal cords are not adequately evaluated on this exam due to motion artifact. Recommend this be directly evaluated. POS: [facility]
[2017-09-06] MEDS: Tamsulosin HCl 0.4 MG CAP PO SCH (20:56)
[2017-09-06] MEDS: Mirtazapine 15 MG TAB PO SCH (20:56)
[2017-09-06] MEDS: Ondansetron HCl/PF 4 MG/2 ML Vial IVP PRN (23:04)
[2017-09-07] MEDS: Guaifenesin DM 100-10/5 ML UDCUP PO PRN ×2 (00:51→19:33)
[2017-09-07] MEDS: Levothyroxine Sodium 75 MCG TAB PO SCH (06:20)
[2017-09-07] MEDS: Meropenem 1 GM in Sterile Water 20 ML SLOW IVP SCH ×2 (06:21→14:15)
[2017-09-07] MEDS: Fluconazole In NaCl,Iso-Osm 100 MG in Admixture Fee 2 EACH IVPB SCH (10:05)
[2017-09-07] MEDS: Oseltamivir 75 MG CAP PO SCH ×2 (10:05→21:44)
[2017-09-07] MEDS: Rosuvastatin 10 MG TAB PO SCH (10:06)
[2017-09-07] MEDS: Multivitamin W/ Minerals 1 TAB PO SCH (10:06)
[2017-09-07] MEDS: TICAGRELOR 90 MG TABLET PO SCH ×2 (10:06→21:43)
[2017-09-07] MEDS: Amlodipine 5 MG TAB PO SCH (10:06)
[2017-09-07] MEDS: Famotidine 20 MG TAB PO SCH (10:06)
[2017-09-07] MEDS: Bupropion 150 MG XL TAB PO SCH (10:06)
--- NOTE | 2017-09-07 14:13 | PDOC.PN ---
- Subjective Encounter Start Date: 09/07/17 Encounter Start Time: 12:30 patient is seen today, alert and oriented. he finished evalaution from ENT with direct laryngoscopy , per ENT, there was no concerning noted. - Objective Resuscitation Status: Resuscitation Status FULL:Full Resuscitation MAR Reviewed: Yes Vital Signs & Weight: Vital Signs (12 hours) Temp Pulse Resp BP Pulse Ox 09/07/17 11:05 97.5 F L 77 18 91/59 L 97 09/07/17 10:06 64 09/07/17 08:30 98.3 F 64 16 96 09/07/17 07:45 98.3 F 64 18 104/62 96 09/07/17 04:00 98.6 F 74 16 95/67 97 Weight Admit Weight 156 lb Weight 156 lb I&O: 09/06/17 09/07/17 09/08/17 06:59 06:59 06:59 Intake Total 1320 2990 Output Total 2200 1200 Balance -880 1790 Result Diagrams: 09/06/17 04:25 09/06/17 04:25 Radiology Reviewed by me: Yes Phys Exam - Physical Examination HEENT: PERRLA, moist MMs Neck: no nodes, no JVD Respiratory: no wheezing, no rales Cardiovascular: RRR, no significant murmur Gastrointestinal: soft, non-tender Musculoskeletal: no edema, pulses present Neurological: non-focal, normal sensation Psychiatric: normal affect, A&O x 3 Dx/Plan (1) Influenza B Code(s): J10.1 - FLU DUE TO OTH IDENT INFLUENZA VIRUS W OTH RESP MANIFEST Status: Acute Comment: on Tamiflu, broad spectrum abx (Meropenem) for possible post flu bacterial infection, Dr. Steven following, continue to follow his recommedations (2) Stem cells transplant status Code(s): Z94.84 - STEM CELLS TRANSPLANT STATUS Status: Acute Comment: in remission (3) Chronic renal failure, stage 3 (moderate) Code(s): N18.3 - CHRONIC KIDNEY DISEASE, STAGE 3 (MODERATE) Status: Chronic Comment: Creatinine around baseline (4) Acute renal failure Status: Acute Qualifiers: Acute renal failure type: unspecified Qualified Code(s): N17.9 - Acute kidney failure, unspecified Comment: Improved with IV fluids. (5) Anemia Code(s): D64.9 - ANEMIA, UNSPECIFIED Status: Acute (6) Coronary artery disease Code(s): I25.10 - ATHSCL HEART DISEASE OF [place] CORONARY ARTERY W/O ANG PCTRS Status: Chronic Qualifiers: Comment: brayden, continue on Aspirin. (7) Hypertension Code(s): I10 - ESSENTIAL (PRIMARY) HYPERTENSION Status: Chronic Qualifiers: Comment: at goal, continue on home Meds. - Plan cont current plan of care, continue antibiotics, PT/OT, respiratory therapy, incentive spirometry, DVT proph w/lovenox * . - Discharge Day Encounter end time: 13:00 Review of Systems - Review of Systems Constitutional: negative: fever, chills, sweats, weakness, malaise, other Eyes: negative: Pain, Vision Change, Conjunctivae Inflammation, Eyelid Inflammation, Redness, Other ENT: negative: Ear Pain, Ear Discharge, Nose Pain, Nose Discharge, Nose Congestion, Mouth Pain, Mouth Swelling, Throat Pain, Throat Swelling, Other Respiratory: negative: Cough, Dry, Shortness of Breath, Hemoptysis, SOB with Excertion, Pleuritic Pain, Sputum, Wheezing Cardiovascular: negative: chest pain, palpitations, orthopnea, paroxysmal nocturnal dyspnea, edema, light headedness, other Gastrointestinal: negative: Nausea, Vomiting, Abdominal Pain, Diarrhea, Constipation, Melena, Hematochezia, Other Genitourinary: negative: Dysuria, Frequency, Incontinence, Hematuria, Retention , Other Musculoskeletal: negative: Neck Pain, Shoulder Pain, Arm Pain, Back Pain, Hand Pain, Leg Pain, Foot Pain, Other - Medications/Allergies Allergies/Adverse Reactions: Allergies Allergy/AdvReac Type Severity Reaction Status Date / Time sulfamethoxazole Allergy Verified 05/11/17 08:36 [From Bactrim] trimethoprim [From Bactrim] Allergy Verified 05/11/17 08:36 vancomycin Allergy Verified 05/11/17 08:36 Medications: Current Medications Acetaminophen (Tylenol) 650 mg PO Q4H PRN PRN Reason: Headache/Fever or Pain Last Admin: 09/06/17 03:30 Dose: 650 mg Amlodipine Besylate (Norvasc) 5 mg PO DAILY [facility] Last Admin: 09/07/17 10:06 Dose: Not Given Bupropion HCl (Wellbutrin Xl) 300 mg PO DAILY [facility] Last Admin: 02/08/18 10:06 Dose: 300 mg Famotidine (Pepcid) 20 mg PO DAILY [facility] Last Admin: 09/07/17 10:06 Dose: 20 mg Guaifenesin/Dextromethorphan (Robitussin Dm) 15 ml PO Q4H PRN PRN Reason: Cough Last Admin: 09/07/17 00:51 Dose: 15 ml Sodium Chloride (Normal Saline 0.9%) 1,000 mls @ 50 mls/hr IV .Q20H [facility] Last Admin: 09/06/17 23:23 Dose: 1,000 mls Fluconazole/Sodium Chloride 100 mg/ Miscellaneous Medication 50 mls @ 100 mls/ hr IVPB DAILY [facility] Last Admin: 09/07/17 10:05 Dose: 50 mls Meropenem 1 gm/ Sterile Water 20 mls @ 240 mls/hr SLOW IVP Q8HR [facility] Last Admin: 09/07/17 06:21 Dose: 20 mls Iron/Minerals/Multivitamins (Theragran M) 1 tab PO DAILY [facility] Last Admin: 09/07/17 10:06 Dose: 1 tab Levothyroxine Sodium (Synthroid) 75 mcg PO 0600 [facility] Last Admin: 09/07/17 06:20 Dose: 75 mcg Mirtazapine (Remeron) 15 mg PO HS [facility] Last Admin: 09/06/17 20:56 Dose: 15 mg Morphine Sulfate (Morphine) 2 mg SLOW IVP Q4H PRN PRN Reason: Pain Ondansetron HCl (Zofran) 4 mg IVP Q6H PRN PRN Reason: Nausea/Vomiting Last Admin: 09/06/17 23:04 Dose: 4 mg Oseltamivir Phosphate (Tamiflu) 75 mg PO BID [facility] Stop: 09/08/17 21:01 Last Admin: 09/07/17 10:05 Dose: 75 mg Phenol (Chloraseptic [place] 180 Ml Bot) 1 ml PO Q2HR PRN PRN Reason: Sore Throat Rosuvastatin Calcium (Crestor) 10 mg PO DAILY [facility] Last Admin: 09/07/17 10:06 Dose: 10 mg Tamsulosin HCl (Flomax) 0.4 mg PO HS [facility] Last Admin: 09/06/17 20:56 Dose: 0.4 mg Ticagrelor (Brilinta) 90 mg PO BID [facility] Last Admin: 09/07/17 10:06 Dose: 90 mg
[2017-09-07] MEDS: Sodium Chloride 0.9% 1,000 ML IV SCH (14:15)
[2017-09-07] MEDS ORDERED: diphenhydrAMINE 25 MG CAP PO SCH (15:30)
[2017-09-07] MEDS: diphenhydrAMINE 25 MG CAP PO PRN (21:43)
[2017-09-07] MEDS: Tamsulosin HCl 0.4 MG CAP PO SCH (21:44)
[2017-09-07] MEDS: Mirtazapine 15 MG TAB PO SCH (21:44)
[2017-09-07] MEDS ORDERED: Mag-Al 1200 mg/1200 mg/30 ML UDCUP PO PRN (22:43)
[2017-09-08] MEDS: Calcium Carbonate 500 MG ChewTAB PO PRN ×2 (00:05→11:29)
--- NOTE | 2017-09-08 02:37 | PRG ---
DATE OF SERVICE: 09/07/2017 SUBJECTIVE: Patient continues to cough intermittently. The pain in the throat has improved, has dev eloped what he describes as pain in the abdominal wall area when he coughs deeply, has developed a sk in erythema after infusion of meropenem, noticed once by the nurse. Meropenem has been discontinued. Some diarrhea, but not much, mostly loose stools. OBJECTIVE: VITAL SIGNS: T-max 98.3, blood pressure 94/58, pulse 72, respirations 18, O2 sat 100%. GENERAL: He appears more alert, more comfortable at rest at this time. LUNGS: His lungs with symmetric air entry. A few rhonchi here and there, dysphonia is noted. HEART: S1, S2, regular rate. ABDOMEN: Soft with mild tenderness in the abdominal wall area, left lower quadrant only when he coug hs, but not on palpation or percussion. EXTREMITIES: No joint inflammatory changes. Moves all extremities equally. LABORATORY DATA: White cell count 2.7, hemoglobin 8.8, platelets 48,000 with 12% bands, 47% neutroph ils. He was seen by Dr. Alexander, and he had apparently found some blisters in the hypopharyngeal area , will await to review the note. ASSESSMENT AND DISCUSSION: B-cell lymphoma in remission after stem cell transplant and to be i nfection with respiratory symptoms, laryngeal pain with mucosal inflammatory process which has been e valuated by ENT. The abdominal pain most likely due to abdominal wall sprain from recurrent coughing spells. Soft tissue neck CT did not show any evidence of abscess or mass lesion, although he did paredes ve an area of asymmetric density in the tonsillar fossae, currently on Diflucan and has been switched back to levofloxacin in view of the reaction to meropenem.
[2017-09-08] MEDS: Levothyroxine Sodium 75 MCG TAB PO SCH (06:15)
[2017-09-08] MEDS: Famotidine 20 MG TAB PO SCH (09:28)
[2017-09-08] MEDS: Bupropion 150 MG XL TAB PO SCH (09:28)
[2017-09-08] MEDS: Multivitamin W/ Minerals 1 TAB PO SCH (09:28)
[2017-09-08] MEDS: Amlodipine 5 MG TAB PO SCH (09:29)
[2017-09-08] MEDS: TICAGRELOR 90 MG TABLET PO SCH ×2 (09:29→21:37)
[2017-09-08] MEDS: Rosuvastatin 10 MG TAB PO SCH (09:29)
[2017-09-08] MEDS: Fluconazole In NaCl,Iso-Osm 100 MG in Admixture Fee 2 EACH IVPB SCH (09:30)
[2017-09-08] MEDS: Oseltamivir 75 MG CAP PO SCH ×2 (09:30→21:36)
--- NOTE | 2017-09-08 12:53 | PDOC.PN ---
- Subjective Encounter Start Date: 09/08/17 Encounter Start Time: 10:45 Patient is seen today, had allergic reaction to meropenam with erythema and itching all over body, better now after changing antibitoivs to Levofloxacin. - Objective Resuscitation Status: Resuscitation Status FULL:Full Resuscitation MAR Reviewed: Yes Vital Signs & Weight: Vital Signs (12 hours) Temp Pulse Resp BP BP Pulse Ox 09/08/17 11:38 98.6 F 80 16 121/68 98 09/08/17 09:29 81 118/70 09/08/17 08:57 97.8 F 90 18 98 09/08/17 08:00 97.8 F 90 18 118/70 98 09/08/17 04:00 98.0 F 81 16 118/70 97 Weight Admit Weight 156 lb Weight 156 lb I&O: 09/07/17 09/08/17 09/09/17 06:59 06:59 06:59 Intake Total 2990 2500 Output Total 1200 1150 Balance 1790 1350 Result Diagrams: 09/06/17 04:25 09/06/17 04:25 Radiology Reviewed by me: Yes Phys Exam - Physical Examination HEENT: PERRLA, moist MMs Neck: no nodes, no JVD Respiratory: no wheezing, no rales Cardiovascular: RRR, no significant murmur Gastrointestinal: soft, non-tender Musculoskeletal: no edema, pulses present Neurological: non-focal, normal sensation Psychiatric: normal affect, A&O x 3 Skin: no rash, normal turgor Dx/Plan (1) Drug-induced hypersensitivity reaction Code(s): T78.40XA - ALLERGY, UNSPECIFIED, INITIAL ENCOUNTER Status: Acute Comment: PT is started on benedryl prn itching, and changed Abx from meropenam to Levofloxacin (2) Influenza B Code(s): J10.1 - FLU DUE TO OTH IDENT INFLUENZA VIRUS W OTH RESP MANIFEST Status: Acute Comment: on Tamiflu, broad spectrum abx changed to levofloxacin due to allergy to [place], for possible post flu bacterial infection, Dr. Steven following, continue to follow his recommedations (3) Stem cells transplant status Code(s): Z94.84 - STEM CELLS TRANSPLANT STATUS Status: Acute Comment: in remission (4) Chronic renal failure, stage 3 (moderate) Code(s): N18.3 - CHRONIC KIDNEY DISEASE, STAGE 3 (MODERATE) Status: Chronic Comment: Creatinine around baseline (5) Acute renal failure Status: Acute Qualifiers: Acute renal failure type: unspecified Qualified Code(s): N17.9 - Acute kidney failure, unspecified Comment: Improved with IV fluids. (6) Anemia Code(s): D64.9 - ANEMIA, UNSPECIFIED Status: Acute Comment: Stbale, Hb. will start oral Ferrous Sulphate. (7) Coronary artery disease Code(s): I25.10 - ATHSCL HEART DISEASE OF [place] CORONARY ARTERY W/O ANG PCTRS Status: Chronic Qualifiers: Comment: stbale, continue on Aspirin. (8) Hypertension Code(s): I10 - ESSENTIAL (PRIMARY) HYPERTENSION Status: Chronic Qualifiers: Comment: at goal, continue on home Meds. - Plan cont current plan of care, plan discussed w/ family, continue antibiotics, PT/OT , respiratory therapy, incentive spirometry, DVT proph w/SCDs * . - Discharge Day Encounter end time: 11:15 Review of Systems - Review of Systems Constitutional: weakness Eyes: negative: Pain, Vision Change, Conjunctivae Inflammation, Eyelid Inflammation, Redness, Other ENT: negative: Ear Pain, Ear Discharge, Nose Pain, Nose Discharge, Nose Congestion, Mouth Pain, Mouth Swelling, Throat Pain, Throat Swelling, Other Respiratory: negative: Cough, Dry, Shortness of Breath, Hemoptysis, SOB with Excertion, Pleuritic Pain, Sputum, Wheezing Cardiovascular: negative: chest pain, palpitations, orthopnea, paroxysmal nocturnal dyspnea, edema, light headedness, other Gastrointestinal: negative: Nausea, Vomiting, Abdominal Pain, Diarrhea, Constipation, Melena, Hematochezia, Other Genitourinary: negative: Dysuria, Frequency, Incontinence, Hematuria, Retention , Other Musculoskeletal: negative: Neck Pain, Shoulder Pain, Arm Pain, Back Pain, Hand Pain, Leg Pain, Foot Pain, Other Skin: Rash (erythme of lower extremitis and Upper back.) - Medications/Allergies Allergies/Adverse Reactions: Allergies Allergy/AdvReac Type Severity Reaction Status Date / Time meropenem [From Merrem] Allergy Verified 09/07/17 18:11 sulfamethoxazole Allergy Verified 05/11/17 08:36 [From Bactrim] trimethoprim [From Bactrim] Allergy Verified 10/12/17 08:36 vancomycin Allergy Verified 05/11/17 08:36 Medications: Current Medications Acetaminophen (Tylenol) 650 mg PO Q4H PRN PRN Reason: Headache/Fever or Pain Last Admin: 09/06/17 03:30 Dose: 650 mg Al Hydroxide/Mg Hydroxide (Maalox) 30 ml PO Q6H PRN PRN Reason: Heartburn or Indigestion Amlodipine Besylate (Norvasc) 5 mg PO DAILY [facility] Last Admin: 09/08/17 09:29 Dose: 5 mg Bupropion HCl (Wellbutrin Xl) 300 mg PO DAILY [facility] Last Admin: 09/08/17 09:28 Dose: 300 mg Calcium Carbonate (Tums) 1,000 mg PO Q4H PRN PRN Reason: Heartburn or Indigestion Last Admin: 09/08/17 11:29 Dose: 1,000 mg Diphenhydramine HCl (Benadryl) 25 mg PO Q6H PRN PRN Reason: Itching & Insomnia Last Admin: 09/07/17 21:43 Dose: 25 mg Famotidine (Pepcid) 20 mg PO DAILY [facility] Last Admin: 09/08/17 09:28 Dose: 20 mg Guaifenesin/Dextromethorphan (Robitussin Dm) 15 ml PO Q4H PRN PRN Reason: Cough Last Admin: 09/07/17 19:33 Dose: 15 ml Sodium Chloride (Normal Saline 0.9%) 1,000 mls @ 50 mls/hr IV .Q20H [facility] Last Admin: 09/07/17 14:15 Dose: 1,000 mls Fluconazole/Sodium Chloride 100 mg/ Miscellaneous Medication 50 mls @ 100 mls/ hr IVPB DAILY [facility] Last Admin: 09/08/17 09:30 Dose: 50 mls Levofloxacin 500 mg/ Device 100 mls @ 100 mls/hr IVPB 0900 [facility] Last Admin: 09/08/17 09:30 Dose: 100 mls Iron/Minerals/Multivitamins (Theragran M) 1 tab PO DAILY [facility] Last Admin: 09/08/17 09:28 Dose: 1 tab Levothyroxine Sodium (Synthroid) 75 mcg PO 0600 [facility] Last Admin: 09/08/17 06:15 Dose: 75 mcg Mirtazapine (Remeron) 15 mg PO HS [facility] Last Admin: 09/07/17 21:44 Dose: 15 mg Morphine Sulfate (Morphine) 2 mg SLOW IVP Q4H PRN PRN Reason: Pain Ondansetron HCl (Zofran) 4 mg IVP Q6H PRN PRN Reason: Nausea/Vomiting Last Admin: 09/06/17 23:04 Dose: 4 mg Oseltamivir Phosphate (Tamiflu) 75 mg PO BID [facility] Stop: 09/08/17 21:01 Last Admin: 09/08/17 09:30 Dose: 75 mg Pantoprazole Sodium (Protonix) 40 mg PO DAILY [facility] Last Admin: 09/08/17 09:29 Dose: 40 mg Phenol (Chloraseptic [place] 180 Ml Bot) 1 ml PO Q2HR PRN PRN Reason: Sore Throat Rosuvastatin Calcium (Crestor) 10 mg PO DAILY [facility] Last Admin: 09/08/17 09:29 Dose: 10 mg Tamsulosin HCl (Flomax) 0.4 mg PO HS [facility] Last Admin: 09/07/17 21:44 Dose: 0.4 mg Ticagrelor (Brilinta) 90 mg PO BID [facility] Last Admin: 09/08/17 09:29 Dose: 90 mg
[2017-09-08] MEDS: diphenhydrAMINE 25 MG CAP PO PRN (21:37)
[2017-09-08] MEDS: Guaifenesin DM 100-10/5 ML UDCUP PO PRN (21:37)
[2017-09-08] MEDS: Tamsulosin HCl 0.4 MG CAP PO SCH (21:45)
[2017-09-08] MEDS: Mirtazapine 15 MG TAB PO SCH (21:49)
[2017-09-09] MEDS: Sodium Chloride 0.9% 1,000 ML IV SCH ×2 (04:04→05:54)
[2017-09-09 04:51] LABS: #Eosinphils 0.3 thou/uL (0.0-0.7); #Lymphocytes 0.8 thou/uL (1.20-3.40); #Monocytes 0.2 thou/uL (0.11-0.59); %Eosinophils 12.4 % (0.0-10.0); %Lymphocytes 33.6 % (21.0-51.0); %Monocytes 10.2 % (0.0-10.0); %Neutrophils 41.8 % (42.0-75.0); Hemoglobin 8.5 g/dL (14.0-18.0); Mean Corpuscular HGB CONC 35.1 g/dL (32.0-36.0); Mean Platelet Volume 8.3 fL (7.4-10.4); Platelet Count 55 thou/uL (130-400); RBC Distribution Width 14.1 % (11.5-14.5); Red Blood Cell (RBC) Count 2.36 mill/uL (4.70-6.10); White Blood Cell (WBC) Count 2.4 thou/uL (4.8-10.8)
[2017-09-09 04:52] LABS: Anion Gap 10 mmol/L (10-20); BUN (Urea Nitrogen) 25 mg/dL (8.4-25.7); Calc. Creatinine Clearance 46 mL/min (70-130); Calcium 8.5 mg/dL (7.8-10.44); Carbon Dioxide 24 mmol/L (23-31); Chloride 111 mmol/L (98-107); Estimated GFR-MDRD 46; Glucose 96 mg/dL (83-110); Potassium 4.3 mmol/L (3.5-5.1); Sodium 141 mmol/L (136-145)
[2017-09-09] MEDS: Levothyroxine Sodium 75 MCG TAB PO SCH (05:56)
[2017-09-09] MEDS: TICAGRELOR 90 MG TABLET PO SCH (08:53)
[2017-09-09] MEDS: Bupropion 150 MG XL TAB PO SCH (08:53)
[2017-09-09] MEDS: Famotidine 20 MG TAB PO SCH (08:53)
[2017-09-09] MEDS: Multivitamin W/ Minerals 1 TAB PO SCH (08:53)
[2017-09-09] MEDS: Rosuvastatin 10 MG TAB PO SCH (08:53)
[2017-09-09] MEDS: Fluconazole In NaCl,Iso-Osm 100 MG in Admixture Fee 2 EACH IVPB SCH (08:53)
[2017-09-09] MEDS: Amlodipine 5 MG TAB PO SCH (08:53)
[2017-09-09] MEDS ORDERED: Metoclopramide HCl 10 MG/2 ML VIAL IVP SCH (13:15)
[2017-09-09 15:58] VITALS: BP 122/69; TEMP 97.7
--- NOTE | 2017-09-09 16:27 | CT ---
CT ABDOMEN AND PELVIS WITH IV CONTRAST: 09/09/17 HISTORY: Abdominal pain and persistent hiccups. Nausea. COMPARISON: 06/11/16. FINDINGS: There is a small right pleural effusion and atelectasis with minimal pleural effusion versus pleural thickening at the left lung base. Lung bases are otherwise clear aside from passive atelectasis at th e right lung base. A gastrostomy tube is now noted in place. The spleen remains enlarged and measures 16 cm in craniocau aiden dimensions. There is a tiny echogenic focus seen in the dependent portion of the gallbladder lumen also seen on p rior exam. This could represent a tiny calculus or gallbladder polyp. A too small to characterize hypodense lesion in the right kidney. Nonobstructing superior pole right renal calculus is also again identified. There is a lobulated contour of each kidney with suggestio n of mild renal cortical thinning as well. The liver, pancreas, and bilateral adrenal glands, opacified bowel and urinary bladder demonstrate a normal CT appearance. There is colonic diverticulosis present. The appendix is visualized and normal in caliber. Vascular calcification seen in abdominal aorta and iliac arteries. Loops of small bowel are normal in caliber. IMPRESSION: 1. Small right pleural effusion and atelectasis. 2. Dense vascular calcifications in the coronary arteries as well as involving the abdominal aor ta and iliac arteries. 3. Splenomegaly, also noted on prior study. 4. Small size of each kidney with suggestion of renal cortical thinning. Nonobstructing superior pole right renal calculus is again present with subcentimeter too small to characterize hypodense le nathaly also again present in the right kidney. 5. No acute findings are seen in the abdomen or pelvis. POS: [facility]
[2017-09-09] MEDS ORDERED: ISOVUE-370 76%-LOCM 1 ML ONE (16:46)
--- NOTE | 2017-09-09 17:48 | DIS ---
DATE OF ADMISSION: 09/04/2017 DATE OF DISCHARGE: 09/09/2017 ADMITTING DIAGNOSIS: Acute influenza A infection. DISCHARGE DIAGNOSES: 1. Acute influenza A infection. 2. Secondary diagnosis of acute neutropenia secondary to history of lymphoma. 3. Acute hypoxic respiratory failure. 4. Acute abdominal pain. 5. Intractable hiccups. CONSULTANTS: Involved in the care is Dr. Augie Steven and Jada Devi. INVESTIGATIONS DONE DURING THIS ADMISSION: CT of the neck was done. HISTORY OF PRESENT ILLNESS AND HOSPITAL COURSE IN BRIEF: This is a 72-year-old white male with a his tory of lymphoma in remission after stem cell transplantation in 2015, was admitted on 06/19/2016 wit h diarrhea and abdominal pain and renal insufficiency. At that time, had a C. diff antigen positivit y with toxin that was negative. So he was admitted this time with a history of fever and cough and w ith a sign suggestive for flu infection, but initial influenza panel was negative, but later on, the respiratory panel was positive for influenza B. The patient has been started on Tamiflu and Infectio us Disease was consulted because of the immunosuppressed state. Patient was having some hypoxic stat e and was having some pain in the neck. CT of the neck was done, which did show an evidence of a spo t in the left tonsillar fossa. So ENT was consulted who initially suggested a possible yeast infecti on and started the patient on fluconazole, but otherwise no tumor was noted. The patient showed good improvement and he completed the Tamiflu course and was also started on meropenem initially which ga ve him a rash on his upper and lower extremities, so this was discontinued and the patient was starte d on levofloxacin. The patient showed good improvement with no elevation of the white count, no feve r, and had intractable hiccups which was treated well with Reglan. The patient showed good improveme nt and also had a CT of the abdomen which was pending at the time. But as the patient did not have a ny bowel movement problems and no evidence of any obstruction, the patient was discharged home in sta ble condition. PHYSICAL EXAMINATION: VITAL SIGNS: Blood pressures are 102/65, heart rate is 77, respiration rate is 18, saturation 98%. GENERAL: The patient is a moderately built and moderately nourished, does not appear in acute distre ss. CARDIOVASCULAR: S1, S2 normal. No murmurs, rubs or gallops. LUNGS: Bilateral air entry was equal. No wheezing, no crackles. ABDOMEN: Soft, nontender. No guarding or rebound tenderness. Bowel sounds normal. DISCHARGE MEDICATIONS: Pantoprazole 40 mg p.o. b.i.d., amlodipine 5 mg p.o. daily, bupropion 300 mg p.o. daily, [id number] mcg daily, mirtazapine 15 mg at bedtime, rosuvastatin 10 mg daily, tamsul osin 0.4 mg at bedtime and ticagrelor 90 mg 1 tablet p.o. b.i.d. New medications are. 1. Levothyroxine, continue for 3 more days and fluconazole continue for 10 more days. DISCHARGE INSTRUCTIONS: 1. Continue activity as tolerated. Advised to follow up with primary care physician in 1-2 weeks. Advised to follow up with Dr. Steven in 2 weeks. 2. Continue with the general diet. 3. Continue activity as tolerated. The patient is discharged home in stable condition. I spent 35 minutes of this patient on the day of discharge.
--- NOTE | 2017-09-15 15:26 | PQF ---
RAYSA BRIDGES RYAN ANDREW MD [id number] [facility] A [id number] CLINICAL DOCUMENTATION CLARIFICATION FORM: POST DISCHARGE Addendum to original discharge summary date: ____ Late entry note date: __ RAYSA BRIDGES [id number] PLEASE DOCUMENT YOUR RESPONSE BELOW PLEASE FAX RESPONSE BACK TO YOUR INPUT IS NEEDED TO CORRECTLY CODE A DIAGNOSIS FOR YOUR PATIENT. DATE: 09/15/17 ATTN: Dr. Mccormick Please exercise your independent, professional judgment in responding to the clarification form. Clinical indicators are provided on the bottom of this form for your review Please check appropriate box(s) to clarify if the following diagnosis has been ruled in our ruled out: SEPSIS (CDI/Coding list diagnosis here) [ ] Ruled in diagnosis [ ] Continue to treat [ ] Resolved [ ] Ruled out diagnosis [ ] Cannot rule out diagnosis [ ] Other diagnosis [ X ] Unable to determine In addition, please specify: Present on Admission (POA): [ ] Yes [ ] No [ X ] Unable to determine CLINICAL INDICATORS - SIGNS / SYMPTOMS / LABS Sepsis documented in the ER notes but not in the rest of the chart RISK FACTORS Influenza TREATMENTS IV antibiotics MTDD
== END 2017-09-09 19:13 | disposition home or self-care (01) | DRG 152 ==
LOC: ERS 00:46 → SURG A 03:50
PROVIDERS: ADMIT Internal Medicine; ATTEND Internal Medicine
DX: J11.1 Influenza due to unidentified influenza virus with other respiratory manifestations (principal); D61.811 Other drug-induced pancytopenia; J96.01 Acute respiratory failure with hypoxia; D70.8 Other neutropenia; N17.9 Acute kidney failure, unspecified; E78.5 Hyperlipidemia, unspecified; T50.995A Adverse effect of other drugs, medicaments and biological substances, initial encounter; Z85.72 Personal history of non-Hodgkin lymphomas; I25.10 Atherosclerotic heart disease of native coronary artery without angina pectoris; F41.9 Anxiety disorder, unspecified; F32.9 Major depressive disorder, single episode, unspecified; R06.6 Hiccough; R13.10 Dysphagia, unspecified; I12.9 Hypertensive chronic kidney disease with stage 1 through stage 4 chronic kidney disease, or unspecified chronic kidney disease; N18.9 Chronic kidney disease, unspecified; D64.9 Anemia, unspecified; L27.0 Generalized skin eruption due to drugs and medicaments taken internally; T36.1X5A Adverse effect of cephalosporins and other beta-lactam antibiotics, initial encounter
CPT/HCPCS: 36415; 70491; 71046; 74177; 80048; 80053; 81003; 83605; 85025; 85610; 85730; 87040; 87086; 87633; 87804; 96361; 96374; 96375; A4216; J0692; J1450; J1956; J2185; J2270; J2405; J2550; J2765; J7050

== ENCOUNTER 2017-09-29 11:13 | Outpatient (CLI) | payer MEDICARE ==
--- NOTE | 2017-10-02 17:26 | RAD ---
MODIFIED BARIUM SWALLOW: Date: 09/29/17 Film reviewed remotely on [facility]. INDICATION: Dysphagia. Feeding difficulties. Vocal cord dysfunction. FINDINGS: There is mild to moderate swallowing dysfunction. There is premature spillage and some pooling in the vallecula. There is some pooling in the piriform sinuses. There is evidence of some mild laryngeal penetration at the level of the vocal cords seen with what a ppears to be thin substances. On two swallows of what appears to be thin liquids, there is prominent laryngeal penetration and mild aspiration below the vocal cords. IMPRESSION: Moderate swallowing dysfunction. Laryngeal penetration and aspiration was detected. See speech pathol ogist's recommendation. POS: [facility]
== END 2017-09-29 11:14 | disposition home or self-care (01) ==
PROVIDERS: ATTEND Family Medicine
DX: R13.10 Dysphagia, unspecified (principal); R63.3 Feeding difficulties; J38.3 Other diseases of vocal cords
CPT/HCPCS: 74230; G8996-GN-CK; G8997-GN-CJ

== ENCOUNTER 2017-10-13 15:17 | Outpatient (CLI) | payer MEDICARE ==
--- NOTE | 2017-10-13 16:56 | MRI ---
NONCONTRAST ENHANCED MRI IMAGES LUMBAR SPINE 10/13/17 HISTORY: Low extremity pain - M79.604. Multiplanar and multisequence noncontrast enhanced MRI images of the lumbar spine obtained. RADIOGRAPHIC FINDINGS: For the purposes of this dictation, the last freely mobile vertebral body will be considered to be th e L5 vertebral body. All other vertebral bodies are numbered according to this. T12-L1, L1-2, L2-3: Unremarkable. L3-4: Disc desiccation is seen. There is a broad based disc bulge with bilateral facet and ligamentu m flavum hypertrophy. This results in a moderate degree of L3-4 central and lateral recess stenosis. There is mild bilateral neural foraminal narrowing seen. L4-5: There is bilateral facet and ligamentum flavum hypertrophy. There is a mild broad based disc bu lge. This results in mild central and lateral recess stenosis. the neural foramen are patent. L5-S1: Disc desiccation is seen. There is a broad based disc bulge with bilateral facet and ligamentu m flavum hypertrophy. This results in a mild to moderate degree of central and right L5-S1 lateral r ecess stenosis. There is moderate bilateral neural foraminal narrowing due to facet hypertrophy as we ll as the broad based disc bulge extending into the L5-S1 neural foramen. IMPRESSION: L3-4 and L5-S1 disc degenerative change with facet hypertrophy and some central and neural foraminal narrowing. POS: [facility]
== END 2017-10-13 15:18 | disposition home or self-care (01) ==
LOC: SCSMRI 15:17
PROVIDERS: ATTEND Orthopaedic Surgery
DX: M79.604 Pain in right leg (principal); M51.26 Other intervertebral disc displacement, lumbar region; M51.27 Other intervertebral disc displacement, lumbosacral region; M47.896 Other spondylosis, lumbar region; M47.897 Other spondylosis, lumbosacral region; M99.83 Other biomechanical lesions of lumbar region
CPT/HCPCS: 72148

== ENCOUNTER 2017-11-13 12:44 | Outpatient (CLI) | payer MEDICARE ==
--- NOTE | 2017-11-13 15:24 | MRI ---
CERVICAL SPINE MRI WITHOUT IV CONTRAST: Date: 11/13/17 HISTORY: 72-year-old male with history of chronic neck pain and back pain. Prior cervical fusion with 6 months of difficulty swallowing. COMPARISON: 12/31/13. FINDINGS: Postoperative anterior cervical fusion changes at C5-C6 and C6-C7. At C2-C3, there is no significant central canal or foraminal stenosis. At C3-C4, there are diffuse disc osteophytosis changes, as well as some ligamentum flavum hypertrophi c changes resulting in severe central spinal canal stenosis and lateral recess stenosis, as well as s ome bilateral foraminal stenosis, worse on the left side. At C4-C5, there is disc osteophytosis with thickening of the ligamentum flavum, with moderate to aida re central canal, lateral recess, and moderate bilateral foraminal stenosis. At C5-C6, there is some mild foraminal narrowing bilaterally. No significant central canal stenosis. At C6-C7, there is mild left foraminal stenosis without significant central canal or lateral recess s tenosis. C7-T1 level is unremarkable. IMPRESSION: Anterior cervical fusion changes at C5-C6 and C6-C7. Central canal, lateral recess, and foraminal anthony nosis at C3-C4 and C4-C5. Little overall change from the prior study of 12/31/13. POS: [facility]
--- NOTE | 2017-11-13 15:43 | MRI ---
THORACIC SPINE MRI WITHOUT IV CONTRAST: Date: 11/13/17 HISTORY: 72-year-old male with history of chronic back pain radiating down right hip and right leg, weakness f or 7 months. Complicated cervical fusion, prior surgery. Multidermatome right lower extremity symptom s. TECHNIQUE: Multiplanar, multisequence MRI examination of the thoracic spine is performed. FINDINGS: There are fairly extensive disc desiccation changes with ligament and facet hypertrophic changes. Jessie dence for generalized spondylosis. Small right paracentral protrusion at T8-T9 with minimal thecal sa c indention, but without obvious cord compression. At the T9-T10 level, there spinal cord is borderli ne thinned. No spinal cord mass. No significant abnormal marrow signal within the thoracic spine. Inc identally noted are multiple right renal cysts with some slight fullness of the right renal upper col lecting system, probably splenomegaly, and probable gallstones, with little change from 09/09/17. IMPRESSION: Thoracic spine spondylosis without evidence for abnormal marrow signal. Small right paracentral protr usion at T8-T9 without significant stenosis. Borderline thinning of the cord at T9-T10 region, withou t evidence for spinal cord mass. Evidence for splenomegaly. Multiple renal cysts. Probable gallstones . Other findings as above. POS: [facility]
== END 2017-11-13 12:45 | disposition home or self-care (01) ==
LOC: SCSMRI 12:44
PROVIDERS: ATTEND Anesthesiology
DX: M51.15 Intervertebral disc disorders with radiculopathy, thoracolumbar region (principal); M51.05 Intervertebral disc disorders with myelopathy, thoracolumbar region; M48.02 Spinal stenosis, cervical region; M99.81 Other biomechanical lesions of cervical region; R16.1 Splenomegaly, not elsewhere classified; N28.1 Cyst of kidney, acquired; Z98.1 Arthrodesis status
CPT/HCPCS: 72141; 72146

== ENCOUNTER 2018-01-04 18:33 | Inpatient (IN) | payer MEDICARE ==
[2018-01-04] MEDS ORDERED: Acetaminophen 500 MG TAB ONE (19:31)
[2018-01-04] MEDS ORDERED: Ondansetron ODT 4 MG TAB ONE (19:31)
[2018-01-04] MEDS ORDERED: Promethazine HCl 25 MG/ML VIAL ONE (20:10)
[2018-01-04 20:31] LABS: #Lymphocytes 0.5 thou/uL (1.20-3.40); #Monocytes 0.2 thou/uL (0.11-0.59); #Neutrophils 2.9 thou/uL (1.40-6.50); %Eosinophils 0.7 % (0.0-10.0); %Lymphocytes 14.6 % (21.0-51.0); %Monocytes 5.4 % (0.0-10.0); %Neutrophils 79.3 % (42.0-75.0); Hemoglobin 12.5 g/dL (14.0-18.0); Mean Corpuscular HGB CONC 36.1 g/dL (32.0-36.0); Mean Corpuscular Hemoglobin 35.2 pg (27.0-31.0); Mean Corpuscular Volume 97.5 fl (80.0-94.0); Mean Platelet Volume 8.5 fL (7.4-10.4); Platelet Count 34 thou/uL (130-400); RBC Distribution Width 14.6 % (11.5-14.5); Red Blood Cell (RBC) Count 3.54 mill/uL (4.70-6.10); White Blood Cell (WBC) Count 3.6 thou/uL (4.8-10.8)
[2018-01-04 20:51] LABS: ALT (SGPT) 19 U/L (8-55); AST (SGOT) 28 U/L (5-34); Albumin 4.2 g/dL (3.4-4.8); Alkaline Phosphatase 74 U/L (40-150); Anion Gap 20 mmol/L (10-20); BUN (Urea Nitrogen) 39 mg/dL (8.4-25.7); Bilirubin, Total 2.7 mg/dL (0.2-1.2); CK (CPK) 124 U/L (30-200); Calc. Creatinine Clearance 0 mL/min (70-130); Calcium 8.8 mg/dL (7.8-10.44); Carbon Dioxide 17 mmol/L (23-31); Chloride 106 mmol/L (98-107); Estimated GFR-MDRD 35; Globulin 2.2 g/dL (2.4-3.5); Glucose 117 mg/dL (83-110); Lipase 12 U/L (8-78); Potassium 3.9 mmol/L (3.5-5.1); Protein, Total 6.4 g/dL (5.8-8.1); Sodium 137 mmol/L (136-145)
--- NOTE | 2018-01-04 21:03 | RAD ---
ONE VIEW CHEST: 01/04/18 COMPARISON: 11/15/11 HISTORY: Vomiting and nausea. Status post stem cell transplant. FINDINGS: Atherosclerosis of the aorta. Normal cardiac silhouette. Pulmonary vessels and hilum are normal. Cost ophrenic angles are clear. No consolidation or mass. No pneumothorax or osseous abnormalities. Surgical fusion hardware is noted. Stable screw projecting over the right clavicle. IMPRESSION: No acute cardiopulmonary process. POS: [facility]
[2018-01-04] MEDS ORDERED: Acetaminophen 325 MG TAB PO PRN (23:02)
[2018-01-04] MEDS ORDERED: Ondansetron HCl/PF 4 MG/2 ML Vial IVP PRN (23:02)
[2018-01-04] MEDS ORDERED: Ondansetron ODT 4 MG TAB SL PRN (23:02)
[2018-01-04] MEDS ORDERED: Promethazine HCl 25 MG in Sodium Chloride 0.9% 50 ML IVPB PRN (23:02)
[2018-01-04] MEDS ORDERED: Sodium Chloride 0.9% 1,000 ML IV SCH (23:15)
[2018-01-05 00:25] LABS: Lactic Acid 1.1 mmol/L (0.5-2.2)
[2018-01-05] MEDS ORDERED: Milk Of Magnesia 30 ML UDCUP PO PRN (02:12)
[2018-01-05] MEDS ORDERED: Mag-Al 1200 mg/1200 mg/30 ML UDCUP PO PRN (02:12)
[2018-01-05] MEDS ORDERED: Acetaminophen 325 MG TAB PO PRN (02:12)
[2018-01-05] MEDS ORDERED: Ondansetron HCl/PF 4 MG/2 ML Vial IVP PRN (02:12)
[2018-01-05] MEDS ORDERED: Calcium Carbonate 500 MG ChewTAB PO PRN (02:12)
--- NOTE | 2018-01-05 02:32 | HP ---
DATE OF ADMISSION: 01/05/2018 Patient was seen and examined on 01/05/2018. PRIMARY CARE PHYSICIAN: Dr. Misael Little. PRIMARY ONCOLOGIST: Patient follows Dr. Meléndez as well as Michelle Ricci. CHIEF COMPLAINT: Generalized weakness. HISTORY OF PRESENT ILLNESS: Patient is a 72-year-old male history of lymphoma, presented to the [facility] room with above complaints. Over the last 24 hours or so, patient has been feeling generally weak. He also had nausea, vomiting, and diarrhea on and off. He felt feverish, however, did not check his temperature. He denies any r ecent antibiotic use. No sick contacts reported. No significant abdominal discomfort, jaundice, cou gh, shortness of breath, wheezing, dysuria, hematuria, urgency, altered mentation, back pain, or skin rash reported. In the emergency room, his vital signs showed temperature of 101.5 with respiration of 20, pulse rate of 86 with a blood pressure 150/73 with O2 saturation 97% on room air. He received IV fluid with Ph energan and Zofran in the emergency room. Blood cultures were sent. PAST MEDICAL HISTORY: 1. Lymphoma, status post stem cell transplant. His last chemotherapy was approximately 2 years ago. 2. Hypertension. 3. Coronary artery disease. 4. Diverticulosis. 5. Dyslipidemia. 6. Nephrolithiasis. 7. Clostridium difficile antigen positive, earlier this year. 8. Influenza B infection in August of this year with respiratory failure. 9. Anxiety and depression. PAST SURGICAL HISTORY: 1. PEG tube placement. 2. Colostomy placement with removal. 3. Neck surgery. 4. Bilateral knee surgery. 5. MediPort placement with removal. 6. Shoulder surgery. ALLERGIES: Patient is allergic to BACTRIM and VANCOMYCIN. SOCIAL HISTORY: Patient is FULL CODE. Lives with his . The is the decision maker. CURRENT HOME MEDICATIONS: Amlodipine 5 mg daily, bupropion 300 mg daily, Pristiq 50 mg daily, levoth yroxine 75 mcg daily, Remeron 15 mg daily, multivitamin 1 tablet daily, Protonix 40 mg b.i.d., Cresto r 10 mg daily, Flomax 0.4 mg at bedtime. FAMILY HISTORY: Mother with heart disease. Father with emphysema. REVIEW OF SYSTEMS: The following complete review of systems was negative, unless otherwise mentioned in the HPI or below: Constitutional: Weight loss or gain, ability to conduct usual activities. Sk in: Rash, itching. Eyes: Double vision, pain. ENT/Mouth: Nose bleeding, neck stiffness, pain, te nderness. Cardiovascular: Palpitations, dyspnea on exertion, orthopnea. Respiratory: Shortness of breath, wheezing, cough, hemoptysis, fever, or night sweats. Gastrointestinal: Poor appetite, abdo bernadette pain, heartburn, nausea, vomiting, constipation, or diarrhea. Genitourinary: Urgency, frequen cy, dysuria, nocturia. Musculoskeletal: Pain, swelling. Neurologic/Psychiatric: Anxiety, depressi on. Allergy/Immunologic: Skin rash, bleeding tendency. PHYSICAL EXAMINATION: VITAL SIGNS: As discussed above. GENERAL: A 72-year-old male, ill appearing. Feels generally weak. HEENT: Atraumatic, normocephalic, sclerae anicteric. Dry mucous membranes. No oral lesion. NECK: Supple, no JVD appreciated. No carotid bruit. LUNGS: Clear to auscultation bilaterally with scattered rales at bases. HEART: S1, S2 present. Regular rate and rhythm. No rubs or gallops appreciated. ABDOMEN: Soft, mild generalized tenderness, without any rebound, guarding, or costovertebral tendern ess. EXTREMITIES: No edema or calf tenderness. NEUROLOGIC: Grossly nonfocal, moves all four extremities. PSYCHIATRY: Alert, awake, oriented x3. SKIN: Warm and dry. LYMPH NODES: No palpable lymph nodes in the neck. PERIPHERAL VASCULAR: Radial pulses palpable bilaterally, somewhat low volume. LABORATORY FINDINGS: CBC showed WBC 3.6 with hemoglobin 12.5, hematocrit 34.5, platelet count of 34. Chemistries showed sodium 137, potassium 3.9, chloride 106, bicarbonate 17, BUN 39, creatinine 1.92 with glucose 117. Total bilirubin 2.7. Lactic acid 3.3. BNP was 156.2. Chest x-ray by my review was negative for infiltrate. EKG by my review showed sinus rhythm without s ignificant ST-T wave changes. IMPRESSION: 1. Generalized weakness, multifactorial. 2. Nausea, vomiting, diarrhea, rule out Clostridium difficile colitis. 3. Acute kidney injury on chronic kidney disease, stage 3. 4. Dehydration/metabolic acidosis/lactic acidosis. 5. Pancytopenia. 6. Hypertension. 7. Coronary artery disease. 8. Anxiety, depression. PLAN: Patient will be monitored on the telemetry unit. Dr. Fulton will be consulted. We will send stool workup. We will start him on cefepime with Flagyl and oral vancomycin. Blood cultures have be en sent. We will keep him on clear-liquid diet. We will resume selected home medications. IV fluid s. We will recheck labs in a.m. 1. Deep venous thrombosis prophylaxis with sequential compression devices. 2. Plan of care was discussed with the patient and the family at the bedside. They stated fideliaan filemon.
[2018-01-05] MEDS: metroNIDAZOLE 500 MG in Premix Bag 1 BAG IVPB SCH ×3 (03:16→18:40)
[2018-01-05] MEDS: Sodium Chloride 0.9% 1,000 ML IV SCH ×3 (03:21→18:41)
[2018-01-05 04:57] LABS: ALT (SGPT) 20 U/L (8-55); AST (SGOT) 31 U/L (5-34); Albumin 3.5 g/dL (3.4-4.8); Alkaline Phosphatase 57 U/L (40-150); Anion Gap 14 mmol/L (10-20); BUN (Urea Nitrogen) 38 mg/dL (8.4-25.7); Bilirubin, Total 2.6 mg/dL (0.2-1.2); Calc. Creatinine Clearance 42 mL/min (70-130); Calcium 8.1 mg/dL (7.8-10.44); Carbon Dioxide 17 mmol/L (23-31); Chloride 110 mmol/L (98-107); Estimated GFR-MDRD 38; Globulin 1.7 g/dL (2.4-3.5); Glucose 97 mg/dL (83-110); Magnesium 1.4 mg/dL (1.6-2.6); Phosphorus 2.5 mg/dL (2.3-4.7); Potassium 3.8 mmol/L (3.5-5.1); Protein, Total 5.2 g/dL (5.8-8.1); Sodium 137 mmol/L (136-145)
[2018-01-05 05:04] LABS: Band 8 % (5-11); Hemoglobin 10.6 g/dL (14.0-18.0); Lymphocytes 19 % (21-51); MDiff Complete? YES; Mean Corpuscular HGB CONC 36.6 g/dL (32.0-36.0); Mean Corpuscular Hemoglobin 35.3 pg (27.0-31.0); Mean Corpuscular Volume 96.6 fl (80.0-94.0); Mean Platelet Volume 8.2 fL (7.4-10.4); Monocytes 5 % (0-10); Neutrophil 68 % (42-75); PLT Morphology Comment Appears Decreased; Platelet Count 43 thou/uL (130-400); RBC Distribution Width 14.4 % (11.5-14.5)
[2018-01-05] MEDS: Levothyroxine Sodium 75 MCG TAB PO SCH (06:19)
[2018-01-05] MEDS: Mirtazapine 15 MG TAB PO SCH (08:27)
[2018-01-05] MEDS: Amlodipine 5 MG TAB PO SCH (08:27)
[2018-01-05] MEDS: Multivitamin W/ Minerals 1 TAB PO SCH (08:27)
[2018-01-05] MEDS: Bupropion 150 MG XL TAB PO SCH (08:27)
[2018-01-05] MEDS: Saccharomyces boulardii 250 MG CAP PO SCH (08:28)
[2018-01-05] MEDS: Venlafaxine HCl XR 75 MG CAP PO SCH (08:28)
[2018-01-05] MEDS: Rosuvastatin 10 MG TAB PO SCH (08:28)
[2018-01-05] MEDS ORDERED: Famotidine/PF 20 mg/2ml Vial SLOW IVP SCH (09:00)
[2018-01-05] MEDS ORDERED: DESVENLAFAXINE SUCCINATE PO SCH (09:00)
--- NOTE | 2018-01-05 10:25 | PDOC.PN ---
- Subjective Encounter Start Date: 01/05/18 Encounter Start Time: 09:00 Subjective: still nauseous, no diarrhea after arriving on tele -: no abd pain -: has chronic low platelets counts around 40-50 per patient - Objective Resuscitation Status: Resuscitation Status FULL:Full Resuscitation MAR Reviewed: Yes Vital Signs & Weight: Vital Signs (12 hours) Temp Pulse Pulse Pulse Resp BP BP 01/05/18 07:57 98.5 F 71 20 01/05/18 07:37 71 67 116/61 127/62 01/05/18 04:00 99.6 F 84 14 01/05/18 00:38 98.6 F 71 20 01/04/18 23:13 71 20 BP BP Pulse Ox 01/05/18 07:57 116/61 93 L 01/05/18 07:37 01/05/18 04:00 112/56 L 95 01/05/18 00:38 01/04/18 23:13 104/54 L Weight Weight 174 lb 8 oz I&O: 01/04/18 01/05/18 01/06/18 06:59 06:59 06:59 Intake Total 1247 Output Total 200 Balance 1047 Result Diagrams: 01/05/18 03:48 01/05/18 03:48 Phys Exam - Physical Examination HEENT: PERRLA, sclera anicteric dry mucosa Neck: no JVD, supple Respiratory: no wheezing, no rhonchi Cardiovascular: RRR, no rub Gastrointestinal: soft, non-tender, positive bowel sounds Musculoskeletal: pulses present Neurological: non-focal, moves all 4 limbs Psychiatric: normal affect, A&O x 3 Dx/Plan (1) Acute gastroenteritis Code(s): K52.9 - NONINFECTIVE GASTROENTERITIS AND COLITIS, UNSPECIFIED Status : Acute (2) WILDA (acute kidney injury) Code(s): N17.9 - ACUTE KIDNEY FAILURE, UNSPECIFIED Status: Acute (3) Pancytopenia Code(s): D61.818 - OTHER PANCYTOPENIA Status: Chronic (4) H/O lymphoma Code(s): Z85.79 - PRSNL HX OF MALIG NEOPLM OF LYMPHOID, HEMATPOETC & REL TISS Status: Chronic Comment: with h/o stem cell transplant, last chemo ?>2 yrs back (5) Dyslipidemia Code(s): E78.5 - HYPERLIPIDEMIA, UNSPECIFIED Status: Chronic (6) Coronary artery disease Code(s): I25.10 - ATHSCL HEART DISEASE OF [place] CORONARY ARTERY W/O ANG PCTRS Status: Chronic Qualifiers: Coronary Disease-Associated Artery/Lesion type: [place] artery [place] vs. transplanted heart: [place] heart Associated angina: without angina Qualified Code(s): I25.10 - Atherosclerotic heart disease of [place] coronary artery without angina pectoris (7) Hypertension Code(s): I10 - ESSENTIAL (PRIMARY) HYPERTENSION Status: Chronic Qualifiers: - Plan await stool studies -: pt is not neutropenic -: is on flagyl iv, gentle iv hydration -: renal function trending down to baseline slowly -: has peg, but feeds orally too, will f/u * . Review of Systems - Medications/Allergies Allergies/Adverse Reactions: Allergies Allergy/AdvReac Type Severity Reaction Status Date / Time meropenem [From Merrem] Allergy Verified 01/05/18 00:37 sulfamethoxazole Allergy Verified 01/05/18 00:37 [From Bactrim] trimethoprim [From Bactrim] Allergy Verified 01/05/18 00:37 vancomycin Allergy Verified 01/05/18 00:37 Medications: Current Medications Acetaminophen (Tylenol) 650 mg PO Q4H PRN PRN Reason: Headache/Fever or Pain Al Hydroxide/Mg Hydroxide (Maalox) 30 ml PO Q6H PRN PRN Reason: Heartburn or Indigestion Amlodipine Besylate (Norvasc) 5 mg PO DAILY [facility] Last Admin: 01/05/18 08:27 Dose: 5 mg Bupropion HCl (Wellbutrin Xl) 300 mg PO DAILY [facility] Last Admin: 01/05/18 08:27 Dose: 300 mg Calcium Carbonate (Tums) 1,000 mg PO Q4H PRN PRN Reason: Heartburn or Indigestion Metronidazole 500 mg/ Device 100 mls @ 100 mls/hr IVPB 0330,1130,1930 [facility] Last Admin: 01/05/18 03:16 Dose: 100 mls Sodium Chloride (Normal Saline 0.9%) 1,000 mls @ 125 mls/hr IV .Q8H [facility] Last Admin: 01/05/18 03:21 Dose: Not Given Iron/Minerals/Multivitamins (Theragran M) 1 tab PO DAILY [facility] Last Admin: 01/05/18 08:27 Dose: 1 tab Levothyroxine Sodium (Synthroid) 75 mcg PO 0600 [facility] Last Admin: 01/05/18 06:19 Dose: 75 mcg Magnesium Hydroxide (Milk Of Magnesium) 30 ml PO DAILYPRN PRN PRN Reason: Constipation Mirtazapine (Remeron) 15 mg PO DAILY [facility] Last Admin: 01/05/18 08:27 Dose: 15 mg Miscellaneous Medication (Pharmacy To Dose) 1 each IVPB ONE PRN PRN Reason: Pharmacy to dose Stop: 01/15/18 02:10 Ondansetron HCl (Zofran Odt) 4 mg PO Q6H PRN PRN Reason: Nausea/Vomiting Ondansetron HCl (Zofran) 4 mg IVP Q6H PRN PRN Reason: Nausea/Vomiting Pantoprazole Sodium (Protonix) 40 mg PO BID [facility] Last Admin: 01/05/18 08:28 Dose: 40 mg Rosuvastatin Calcium (Crestor) 10 mg PO DAILY [facility] Last Admin: 01/05/18 08:28 Dose: 10 mg Saccharomyces Boulardii (Florastor) 250 mg PO DAILY [facility] Last Admin: 01/05/18 08:28 Dose: 250 mg Tamsulosin HCl (Flomax) 0.4 mg PO [facility] Venlafaxine HCl (Effexor Xr) 75 mg PO DAILY [facility] Last Admin: 01/05/18 08:28 Dose: 75 mg
[2018-01-05] MEDS: Tamsulosin HCl 0.4 MG CAP PO SCH (19:59)
--- NOTE | 2018-01-06 01:15 | CON ---
DATE OF CONSULTATION: 01/05/2018 HISTORY OF PRESENT ILLNESS: Mr. 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 He has had multiple medical problems since then including coronary arter y disease as well as recent dysphagia and weight loss requiring a feeding tube. He was in his usual state of health until the day of the admission when he awoke in the middle of the night with nausea a s well as diarrhea. His diarrhea got so significant that he was actually having incontinence. His w suhas got very concerned that he is getting dehydrated, so she brought him to the hospital where this w as confirmed and he was admitted for acute gastroenteritis. He is feeling much better here since lisa ng hydrated. He has had some nausea, but no vomiting. He continues to have diarrhea with some incon tinence. He denies any significant blood in the vomiting or the diarrhea. 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 2. Pancytopenia secondary to the above. 3. Hypertension. 4. Coronary artery disease 5. Diverticulosis. 6. Hyperlipidemia. 7. Nephrolithiasis. 8. History of Clostridium difficile. 9. Anxiety and depression. 10. Odynophagia requiring a feeding tube. 11. Chronic renal failure. 12. Anemia secondary to chronic renal failure. CURRENT MEDICATIONS: 1. Tylenol p.r.n. 2. Maalox p.r.n. 3. Norvasc 5 mg p.o. daily. 4. Wellbutrin 300 mg p.o. daily. 5. Tums p.r.n. 6. Theragran multivitamin p.r.n. 7. Synthroid 75 mcg p.o. daily. 8. Milk of magnesia 30 mL p.o. daily p.r.n. 9. Flagyl 500 mg IV q.6 hours. 10. Remeron 15 mg p.o. daily. 11. Zofran 4 mg p.o. q.6 hours p.r.n. 12. Zofran 4 mg IV q.6 hours. 13. Protonix 40 mg p.o. daily. 14. Crestor 10 mg p.o. daily. 15. Florastor 250 mg p.o. daily. 16. Tamsulosin 0.4 mg p.o. at bedtime. 17. Effexor 75 mg p.o. daily. ALLERGIES: MEROPENEM, SULFAMETHOXAZOLE, TRIMETHOPRIM, and VANCOMYCIN. SOCIAL HISTORY: Denies tobacco or alcohol use. He has a who is very supportive and is here wit h him. REVIEW OF SYSTEMS: Otherwise, 10-point review of systems is negative. FAMILY HISTORY: Noncontributory. PHYSICAL EXAMINATION: VITAL SIGNS: Temperature 98.9, pulse 77, respirations 16 to 18, O2 sat 96% on room air, blood pressu re 130/67. GENERAL: He is lying supine in no acute distress. HEENT: Extraocular muscles are intact. Sclerae are anicteric. NECK: Supple, without lymphadenopathy. CARDIOVASCULAR: Regular rhythm. LUNGS: Clear to auscultation bilaterally. ABDOMEN: Hyperactive bowel sounds. Soft, somewhat tender, but no rebounding or guarding. EXTREMITIES: No edema or petechiae. LABORATORY: White blood cell count 3.0, hemoglobin 10.6, platelets 43, these are at his baseline. N eutrophils 68%, he is not neutropenic. Sodium 137, potassium 3.8, chloride 110, CO2 of 17, BUN 38, c reatinine 1.7, glucose 97, calcium 8.1, magnesium 1.4, total bilirubin 2.6, AST 31, ALT 20, total pro tein 5.2. ASSESSMENT: Mr. Willis is a 72-year-old male with: 1. History of lymphoma status post autologous stem cell transplant approximately 3 years ago, now in remission. 2. Pancytopenia secondary to above. 3. Anemia of chronic renal failure. 4. Acute gastroenteritis with bowel incontinence. 5. History of Clostridium difficile. PLAN: 1. GI has already been consulted and stool cultures have been sent, these are pending. He is somewh at improved with the IV hydration. 2. We will follow his blood counts closely, although I suspect they will remain stable as this is hi s baseline and is no lower than he has been in the past. 3. I would recommend that he come off telemetry. 4. I think he can come off neutropenic precautions as he is not frankly neutropenic. We will follow peripherally.
[2018-01-06] MEDS: metroNIDAZOLE 500 MG in Premix Bag 1 BAG IVPB SCH (02:52)
[2018-01-06] MEDS: Sodium Chloride 0.9% 1,000 ML IV SCH ×3 (02:52→21:05)
[2018-01-06 05:06] LABS: ALT (SGPT) 20 U/L (8-55); AST (SGOT) 36 U/L (5-34); Albumin 3.2 g/dL (3.4-4.8); Alkaline Phosphatase 55 U/L (40-150); Anion Gap 9 mmol/L (10-20); BUN (Urea Nitrogen) 30 mg/dL (8.4-25.7); Bilirubin, Total 2.1 mg/dL (0.2-1.2); Calc. Creatinine Clearance 50 mL/min (70-130); Carbon Dioxide 20 mmol/L (23-31); Chloride 112 mmol/L (98-107); Estimated GFR-MDRD 45; Globulin 1.5 g/dL (2.4-3.5); Glucose 94 mg/dL (83-110); Magnesium 1.4 mg/dL (1.6-2.6); Phosphorus 2.5 mg/dL (2.3-4.7); Potassium 3.3 mmol/L (3.5-5.1); Protein, Total 4.7 g/dL (5.8-8.1); Sodium 138 mmol/L (136-145)
[2018-01-06 05:11] LABS: Band 19 % (5-11); Lymphocytes 25 % (21-51); MDiff Complete? YES; Mean Corpuscular HGB CONC 36.9 g/dL (32.0-36.0); Mean Corpuscular Volume 94.9 fl (80.0-94.0); Mean Platelet Volume 8.2 fL (7.4-10.4); Monocytes 4 % (0-10); Neutrophil 52 % (42-75); PLT Morphology Comment Appears Decreased; Platelet Count 33 thou/uL (130-400); RBC Distribution Width 14.1 % (11.5-14.5); Red Blood Cell (RBC) Count 2.57 mill/uL (4.70-6.10); White Blood Cell (WBC) Count 2.6 thou/uL (4.8-10.8)
[2018-01-06] MEDS: Levothyroxine Sodium 75 MCG TAB PO SCH (05:24)
[2018-01-06] MEDS: Amlodipine 5 MG TAB PO SCH (09:06)
[2018-01-06] MEDS: metroNIDAZOLE 500 MG TAB PO SCH ×3 (09:06→20:54)
[2018-01-06] MEDS: Venlafaxine HCl XR 75 MG CAP PO SCH (09:06)
[2018-01-06] MEDS: Potassium Chloride 20 MEQ TAB PO SCH ×2 (09:06→15:37)
[2018-01-06] MEDS: Mirtazapine 15 MG TAB PO SCH (09:07)
[2018-01-06] MEDS: Bupropion 150 MG XL TAB PO SCH (09:07)
[2018-01-06] MEDS: Saccharomyces boulardii 250 MG CAP PO SCH (09:07)
[2018-01-06] MEDS: Multivitamin W/ Minerals 1 TAB PO SCH (09:07)
[2018-01-06] MEDS: Rosuvastatin 10 MG TAB PO SCH (09:07)
--- NOTE | 2018-01-06 10:37 | PDOC.PN ---
- Subjective Encounter Start Date: 01/06/18 Encounter Start Time: 08:00 Subjective: no diarrhea from yesterday, no nausea -: is tolerating oral diet -: feels better - Objective Resuscitation Status: Resuscitation Status FULL:Full Resuscitation MAR Reviewed: Yes Vital Signs & Weight: Vital Signs (12 hours) Temp Pulse Resp BP Pulse Ox 01/06/18 09:00 98.1 F 73 21 H 93 L 01/06/18 07:40 98.1 F 73 21 H 138/66 93 L 01/06/18 04:00 99.0 F 70 20 123/61 92 L Weight Admit Weight 173 lb 14.4 oz Weight 175 lb 8 oz I&O: 01/05/18 01/06/18 01/07/18 06:59 06:59 06:59 Intake Total 1247 2740 Output Total 200 1200 Balance 1047 1540 Result Diagrams: 01/06/18 03:44 01/06/18 03:44 Phys Exam - Physical Examination HEENT: PERRLA, moist MMs Neck: no JVD, supple Respiratory: no wheezing, no rales Cardiovascular: RRR, no significant murmur Gastrointestinal: soft, non-tender, positive bowel sounds peg+ Musculoskeletal: no edema, pulses present Neurological: non-focal, moves all 4 limbs Psychiatric: normal affect, A&O x 3 Dx/Plan (1) cdiff colitis Status: Acute (2) WILDA (acute kidney injury) Code(s): N17.9 - ACUTE KIDNEY FAILURE, UNSPECIFIED Status: Acute Comment: resolving (3) Pancytopenia Code(s): D61.818 - OTHER PANCYTOPENIA Status: Chronic (4) H/O lymphoma Code(s): Z85.79 - PRSNL HX OF MALIG NEOPLM OF LYMPHOID, HEMATPOETC & REL TISS Status: Chronic Comment: with h/o stem cell transplant, last chemo ?>2 yrs back (5) Dyslipidemia Code(s): E78.5 - HYPERLIPIDEMIA, UNSPECIFIED Status: Chronic (6) Coronary artery disease Code(s): I25.10 - ATHSCL HEART DISEASE OF [place] CORONARY ARTERY W/O ANG PCTRS Status: Chronic Qualifiers: Coronary Disease-Associated Artery/Lesion type: [place] artery [place] vs. transplanted heart: [place] heart Associated angina: without angina Qualified Code(s): I25.10 - Atherosclerotic heart disease of [place] coronary artery without angina pectoris (7) Hypertension Code(s): I10 - ESSENTIAL (PRIMARY) HYPERTENSION Status: Chronic Qualifiers: Hypertension type: essential hypertension - Plan pt is allergic to vanc, continue oral flagyl -: tx to med floor -: pancytopenia is chronic and stable -: to amb as tolerated -: may dc iv fluids if tolerating oral solid diet * . Review of Systems - Medications/Allergies Allergies/Adverse Reactions: Allergies Allergy/AdvReac Type Severity Reaction Status Date / Time meropenem [From Merrem] Allergy Verified 01/05/18 00:37 sulfamethoxazole Allergy Verified 01/05/18 00:37 [From Bactrim] trimethoprim [From Bactrim] Allergy Verified 01/05/18 00:37 vancomycin Allergy Verified 01/05/18 00:37 Medications: Current Medications Acetaminophen (Tylenol) 650 mg PO Q4H PRN PRN Reason: Headache/Fever or Pain Al Hydroxide/Mg Hydroxide (Maalox) 30 ml PO Q6H PRN PRN Reason: Heartburn or Indigestion Amlodipine Besylate (Norvasc) 5 mg PO DAILY [facility] Last Admin: 01/06/18 09:06 Dose: 5 mg Bupropion HCl (Wellbutrin Xl) 300 mg PO DAILY [facility] Last Admin: 01/06/18 09:07 Dose: 300 mg Calcium Carbonate (Tums) 1,000 mg PO Q4H PRN PRN Reason: Heartburn or Indigestion Sodium Chloride (Normal Saline 0.9%) 1,000 mls @ 125 mls/hr IV .Q8H [facility] Last Admin: 01/06/18 02:52 Dose: 1,000 mls Iron/Minerals/Multivitamins (Theragran M) 1 tab PO DAILY [facility] Last Admin: 01/06/18 09:07 Dose: 1 tab Levothyroxine Sodium (Synthroid) 75 mcg PO 0600 [facility] Last Admin: 01/06/18 05:24 Dose: 75 mcg Magnesium Hydroxide (Milk Of Magnesium) 30 ml PO DAILYPRN PRN PRN Reason: Constipation Metronidazole (Flagyl) 500 mg PO TID [facility] Last Admin: 01/06/18 09:06 Dose: 500 mg Mirtazapine (Remeron) 15 mg PO DAILY [facility] Last Admin: 01/06/18 09:07 Dose: 15 mg Miscellaneous Medication (Pharmacy To Dose) 1 each IVPB ONE PRN PRN Reason: Pharmacy to dose Stop: 01/15/18 02:10 Ondansetron HCl (Zofran Odt) 4 mg PO Q6H PRN PRN Reason: Nausea/Vomiting Ondansetron HCl (Zofran) 4 mg IVP Q6H PRN PRN Reason: Nausea/Vomiting Pantoprazole Sodium (Protonix) 40 mg PO BID [facility] Last Admin: 01/06/18 09:07 Dose: 40 mg Potassium Chloride (K-Dur) 40 meq PO BID[facility] Last Admin: 01/06/18 09:06 Dose: 40 meq Rosuvastatin Calcium (Crestor) 10 mg PO DAILY [facility] Last Admin: 01/06/18 09:07 Dose: 10 mg Saccharomyces Boulardii (Florastor) 250 mg PO DAILY [facility] Last Admin: 01/06/18 09:07 Dose: 250 mg Sodium Chloride (Flush - Normal Saline) 10 ml IVF Q12HR [facility] Last Admin: 01/06/18 09:07 Dose: 10 ml Sodium Chloride (Flush - Normal Saline) 10 ml IVF PRN PRN PRN Reason: Saline Flush Tamsulosin HCl (Flomax) 0.4 mg PO HS [facility] Last Admin: 01/05/18 19:59 Dose: 0.4 mg Venlafaxine HCl (Effexor Xr) 75 mg PO DAILY [facility] Last Admin: 01/06/18 09:06 Dose: 75 mg
--- NOTE | 2018-01-06 14:43 | CON ---
DATE OF CONSULTATION: 01/05/2018 REASON FOR CONSULTATION: Diarrhea. HISTORY OF PRESENT ILLNESS: Mr. Willis is a pleasant 72-year-old who I know from prior history of dysphagia of unclear etiology, also resulted in a PEG tube placement. He states that early morning, he had been having watery diarrhea several times and actually had several episodes of vomiting as well. He came in last night around 2100 hours. Here, had leukocytes in the stool and a positive C. diff toxin antigen. He denies recent antibiotics. Denies recent hospitalizations. He did feel somewhat feverish. He has had no sick contacts. His with him is not ill. In the emergency room, he had temperature of 101.5. Vital signs are otherwise stable. Received IV fluids and had culture sent. At presently, he is doing little better since yesterday. Denies severe abdominal pain. PAST MEDICAL HISTORY: 1. Lymphoma, stem-cell transplant. Last chemo about 2 years ago. 2. Hypertension. 3. Coronary artery disease. 4. Diverticulosis. 5. Dyslipidemia 6. Nephrolithiasis. 7. Influenza B in August of this year with respiratory failure. 8. Anxiety and depression. 9. Oropharyngeal dysphagia, unclear etiology. He has had neurological evaluations, endoscopic and radiographic evaluation. No clear diagnosis. His neurologist felt possibly somewhat due to chemo toxicity, but that is very tentative diagnosis. PAST SURGICAL HISTORY: PEG tube placement, colostomy in place with removal, neck surgery, bilateral knee surgery, MediPort placed in the past, shoulder surgery. ALLERGIES: BACTRIM and IV VANCOMYCIN. SOCIAL HISTORY: The patient is FULL CODE, lives with his . CURRENT MEDICATIONS: Amlodipine, bupropion, Pristiq, levothyroxine, Remeron, multivitamin, Protonix, and Crestor. MEDICATIONS HERE: Tylenol, Maalox, Norvasc, Wellbutrin, Theragran, Synthroid, magnesium, Flagyl 500 mg IV q.8 hours, Protonix, Saccharomyces boulardii. LABORATORY STUDIES: White count 3, hemoglobin 10.6, platelet count 43,000, lymphocytes 19,000, neutrophils 68%. Sodium 137, potassium 3.8, BUN and creatinine are 38 and 1.78, magnesium 1.4, phosphorus 2.6, AST and ALT 31 and 21 , protein 5.2, albumin 3.5. Stool rapid screen negative for parasites, Giardia and cryptosporidium. Stool lactoferrin positive. Campylobacter negative. Stool culture pending. C. diff, positive. PCR, positive antigen. Blood cultures pending. ASSESSMENT: 1. Acute onset diarrhea and vomiting. This sounds more like a viral illness and Clostridium difficile. He does have a positive Clostridium difficile antigen toxin stool; however, he does show previous exposure to Clostridium difficile as he had in 2016 of positive Clostridium difficile antigen, but negative toxin at that time. 2. VANCOMYCIN allergy. 3. Dehydration with hypomagnesemia. RECOMMENDATIONS: 1. Agree with IV fluids. 2. Replace magnesium. 3. I will stop the cefepime. There is no reason to be on that. I will continue the Flagyl. can not use Vanc because he is allergic to it. If he improves really quickly, this may just be viral. If he does not, I would add Dificid to his oral regimen as oral Flagyl is not really all that great for C. diff. This patient is at high risk for complication comorbidities. MTDD
[2018-01-06] MEDS ORDERED: Magnesium 2 GM/NS 0.9% 100 ML 2 GM in Premix Bag 1 BAG IVPB SCH (15:30)
[2018-01-06] MEDS: Ondansetron ODT 4 MG TAB PO PRN (15:35)
--- NOTE | 2018-01-06 20:10 | PRG ---
DATE OF SERVICE: 01/06/2018 SUBJECTIVE: Mr. Willis feels a little bit better. He is still pretty tired. He has 3 bowel movement s today. It is getting a little bit more formed. He denies any overt abdominal pain. He is not eat ing much, but has not started to use his PEG yet. OBJECTIVE: VITAL SIGNS: Temperature is 96, pulse 70, blood pressure 128/68. LUNGS: Clear. HEENT: Oropharynx is moist. ABDOMEN: Soft, mildly tender. No rebound or guarding. LABORATORY STUDIES: White count 2.6, hemoglobin 9.0, platelet count 33,000, 19% bands, neutrophils a re 52%. Sodium 138, potassium 3.3, BUN and creatinine are 30 and 1.52 down from 39 and 1.9 on admiss ion. Bilirubin is 1.4, AST and ALT are 36 and 20. ASSESSMENT: 1. Remote history of lymphoma with autologous bone marrow transplant. 2. Dysphagia of unclear etiology. He has had a PEG for about a year and a half now. He has had harry rological workup with no findings of amyotrophic lateral sclerosis. He had an esophagogastroduodenos copy with no overt findings, may have been stroke related. The neurologist thought maybe related to his previous chemotherapy, bone marrow transplant. 3. Clostridium difficile colitis. Still significant diarrhea. He has reported a history of allergy to vancomycin. He is not sure what it was, oral or p.o., but he thinks when he got an IV he became red and this was red man syndrome. He can probably take oral vancomycin, but for now, we will contin ue the p.o. Flagyl. RECOMMENDATIONS: 1. If the patient has fever or worsening bandemia, we would switch him back to IV Flagyl and start h im on Dificid. Magnesium was low, so I would recheck that tomorrow along with the phosphorus in ligh t of the ongoing diarrhea. 2. We will start tube feeds. 3. I would continue the probiotic.
[2018-01-06] MEDS: Tamsulosin HCl 0.4 MG CAP PO SCH (20:55)
[2018-01-07] MEDS: Levothyroxine Sodium 75 MCG TAB PO SCH (05:10)
[2018-01-07] MEDS: Sodium Chloride 0.9% 1,000 ML IV SCH ×3 (05:10→21:13)
[2018-01-07 07:49] LABS: Anion Gap 11 mmol/L (10-20); BUN (Urea Nitrogen) 25 mg/dL (8.4-25.7); Calc. Creatinine Clearance 60 mL/min (70-130); Calcium 8.1 mg/dL (7.8-10.44); Carbon Dioxide 17 mmol/L (23-31); Chloride 116 mmol/L (98-107); Estimated GFR-MDRD 52; Glucose 103 mg/dL (83-110); Magnesium 2.1 mg/dL (1.6-2.6); Phosphorus 2.4 mg/dL (2.3-4.7); Sodium 140 mmol/L (136-145)
[2018-01-07 08:34] LABS: Band 7 % (5-11); Eosinophils 3 % (0-10); Hemoglobin 9.3 g/dL (14.0-18.0); Lymphocytes 30 % (21-51); MDiff Complete? YES; Mean Corpuscular HGB CONC 35.2 g/dL (32.0-36.0); Mean Corpuscular Hemoglobin 35.3 pg (27.0-31.0); Mean Corpuscular Volume 96.7 fl (80.0-94.0); Mean Platelet Volume 8.7 fL (7.4-10.4); Monocytes 5 % (0-10); Neutrophil 55 % (42-75); PLT Morphology Comment Appears Decreased; Platelet Count 33 thou/uL (130-400); Polychromasia SLIGHT = 2-3 cells (100X) (0-2/hpf); RBC Distribution Width 14.1 % (11.5-14.5); Red Blood Cell (RBC) Count 2.63 mill/uL (4.70-6.10); White Blood Cell (WBC) Count 2.1 thou/uL (4.8-10.8)
[2018-01-07] MEDS: Potassium Chloride 20 MEQ TAB PO SCH (09:09)
[2018-01-07] MEDS: metroNIDAZOLE 500 MG TAB PO SCH (09:42)
[2018-01-07] MEDS: Ondansetron ODT 4 MG TAB PO PRN (09:43)
[2018-01-07] MEDS: Rosuvastatin 10 MG TAB PO SCH (09:43)
[2018-01-07] MEDS: Amlodipine 5 MG TAB PO SCH (09:43)
[2018-01-07] MEDS: Bupropion 150 MG XL TAB PO SCH (09:43)
[2018-01-07] MEDS: Mirtazapine 15 MG TAB PO SCH (09:43)
[2018-01-07] MEDS: Saccharomyces boulardii 250 MG CAP PO SCH (09:44)
[2018-01-07] MEDS: Multivitamin W/ Minerals 1 TAB PO SCH (09:44)
[2018-01-07] MEDS: Venlafaxine HCl XR 75 MG CAP PO SCH (09:44)
--- NOTE | 2018-01-07 10:03 | PDOC.PN ---
- Subjective Encounter Start Date: 01/07/18 Encounter Start Time: 09:30 Subjective: feels a bit nauseated this am with abd bloating -: had 1 loose stool overnight -: no abd pain, amb with PT yesterday - Objective Resuscitation Status: Resuscitation Status FULL:Full Resuscitation MAR Reviewed: Yes Vital Signs & Weight: Vital Signs (12 hours) Temp Pulse Resp BP BP Pulse Ox 01/07/18 09:43 71 01/07/18 08:00 97.7 F 71 20 136/71 96 01/07/18 04:00 96.9 F L 69 16 115/55 L 95 01/06/18 23:58 97.8 F 75 16 129/61 95 Weight Admit Weight 173 lb 14.4 oz Weight 187 lb I&O: 01/06/18 01/07/18 01/08/18 06:59 06:59 06:59 Intake Total 2740 3100 Output Total 1200 1600 Balance 1540 1500 Result Diagrams: 01/07/18 07:17 01/07/18 07:17 Phys Exam - Physical Examination HEENT: PERRLA, moist MMs Neck: no JVD, supple Respiratory: no wheezing, no rales Cardiovascular: RRR, no significant murmur Gastrointestinal: soft, non-tender, positive bowel sounds Musculoskeletal: no edema, pulses present Neurological: non-focal, moves all 4 limbs Psychiatric: normal affect, A&O x 3 Dx/Plan (1) cdiff colitis Status: Acute (2) WILDA (acute kidney injury) Code(s): N17.9 - ACUTE KIDNEY FAILURE, UNSPECIFIED Status: Resolved (3) Pancytopenia Code(s): D61.818 - OTHER PANCYTOPENIA Status: Chronic (4) H/O lymphoma Code(s): Z85.79 - PRSNL HX OF [place] NEOPLM OF LYMPHOID, HEMATPOETC & REL TISS Status: Chronic Comment: with h/o stem cell transplant, last chemo ?>2 yrs back (5) Dyslipidemia Code(s): E78.5 - HYPERLIPIDEMIA, UNSPECIFIED Status: Chronic (6) Coronary artery disease Code(s): I25.10 - ATHSCL HEART DISEASE OF [place] CORONARY ARTERY W/O ANG PCTRS Status: Chronic Qualifiers: Coronary Disease-Associated Artery/Lesion type: [place] artery [place] vs. transplanted heart: [place] heart Associated angina: without angina Qualified Code(s): I25.10 - Atherosclerotic heart disease of [place] coronary artery without angina pectoris (7) Hypertension Code(s): I10 - ESSENTIAL (PRIMARY) HYPERTENSION Status: Chronic Qualifiers: Hypertension type: essential hypertension - Plan will switch to vanc po qid, had previous petros syndrome to iv -: dc flagyl -: cdiff slowly resolving -: electrolytes are stable -: to amb in hallway with assistance, likely dc plan in am if stable * . Review of Systems - Medications/Allergies Allergies/Adverse Reactions: Allergies Allergy/AdvReac Type Severity Reaction Status Date / Time meropenem [From Merrem] Allergy Verified 01/05/18 00:37 sulfamethoxazole Allergy Verified 01/05/18 00:37 [From Bactrim] trimethoprim [From Bactrim] Allergy Verified 01/05/18 00:37 vancomycin Allergy Verified 01/05/18 00:37 Medications: Current Medications Acetaminophen (Tylenol) 650 mg PO Q4H PRN PRN Reason: Headache/Fever or Pain Al Hydroxide/Mg Hydroxide (Maalox) 30 ml PO Q6H PRN PRN Reason: Heartburn or Indigestion Amlodipine Besylate (Norvasc) 5 mg PO DAILY [facility] Last Admin: 01/07/18 09:43 Dose: 5 mg Bupropion HCl (Wellbutrin Xl) 300 mg PO DAILY [facility] Last Admin: 01/07/18 09:43 Dose: 300 mg Calcium Carbonate (Tums) 1,000 mg PO Q4H PRN PRN Reason: Heartburn or Indigestion Sodium Chloride (Normal Saline 0.9%) 1,000 mls @ 50 mls/hr IV .Q20H [facility] Iron/Minerals/Multivitamins (Theragran M) 1 tab PO DAILY [facility] Last Admin: 01/07/18 09:44 Dose: Not Given Levothyroxine Sodium (Synthroid) 75 mcg PO 0600 [facility] Last Admin: 01/07/18 05:10 Dose: 75 mcg Magnesium Hydroxide (Milk Of Magnesium) 30 ml PO DAILYPRN PRN PRN Reason: Constipation Mirtazapine (Remeron) 15 mg PO DAILY [facility] Last Admin: 01/07/18 09:43 Dose: 15 mg Miscellaneous Medication (Pharmacy To Dose) 1 each IVPB ONE PRN PRN Reason: Pharmacy to dose Stop: 01/15/18 02:10 Ondansetron HCl (Zofran Odt) 4 mg PO Q6H PRN PRN Reason: Nausea/Vomiting Last Admin: 01/07/18 09:43 Dose: 4 mg Ondansetron HCl (Zofran) 4 mg IVP Q6H PRN PRN Reason: Nausea/Vomiting Pantoprazole Sodium (Protonix) 40 mg PO BID [facility] Last Admin: 01/07/18 09:43 Dose: 40 mg Rosuvastatin Calcium (Crestor) 10 mg PO DAILY [facility] Last Admin: 01/07/18 09:43 Dose: 10 mg Saccharomyces Boulardii (Florastor) 250 mg PO DAILY [facility] Last Admin: 01/07/18 09:44 Dose: 250 mg Tamsulosin HCl (Flomax) 0.4 mg PO HS [facility] Last Admin: 01/06/18 20:55 Dose: 0.4 mg Vancomycin HCl (First Vancomycin) 125 mg PO QID [facility] Venlafaxine HCl (Effexor Xr) 75 mg PO DAILY [facility] Last Admin: 01/07/18 09:44 Dose: 75 mg
--- NOTE | 2018-01-07 12:09 | PRG ---
DATE OF SERVICE: 01/07/2018 SUBJCETIVE: Mr. Willis has had no diarrhea. The stomach is still bothering him. He has got some mid abdominal cramping. He has had no fever. He is using his PEG for tube feeds. PHYSICAL EXAMINATION: VITAL SIGNS: Temperature is 97, pulse 81, blood pressure 136/71. GENERAL: He is a little bit pale, looks little peaked. LUNGS: Clear. HEART: Has a regular rate and rhythm. ABDOMEN: Slightly protuberant, soft, and nontender. There is no rebound or guarding. LABORATORY STUDIES: White count 2.1, hemoglobin 9.3, platelet count 33,000, 55 segs, 7% bands. [place] um 140, potassium 4, chloride 116, bicarbonate 17, BUN and creatinine are 25 and 1.36. ASSESSMENT: 1. History of lymphoma with previous autologous bone marrow transplant. 2. Oropharyngeal dysphagia of unclear etiology, supplements feeds with PEG. 3. Clostridium difficile colitis, markedly improved from admission, but he still has some abdominal discomfort. This may be related to the Flagyl in fact, we are going to go and give him the p.o. vanc omycin and we will stop the Flagyl. It seems like his reaction was previously the vancomycin with re d man syndrome from IV vancomycin. If he has reaction to the vancomycin, I would recommend we change him to Dificid. Continue probiotics as well. Advance diet as tolerated.
[2018-01-07] MEDS: Vancomycin HCl 25 MG/ML Oral PO SCH ×3 (12:48→21:10)
[2018-01-07] MEDS: Tamsulosin HCl 0.4 MG CAP PO SCH (20:08)
[2018-01-08 05:21] LABS: #Eosinphils 0.1 thou/uL (0.0-0.7); #Lymphocytes 0.7 thou/uL (1.20-3.40); #Monocytes 0.2 thou/uL (0.11-0.59); #Neutrophils 0.9 thou/uL (1.40-6.50); %Basophils 0.4 % (0.0-1.0); %Eosinophils 6.1 % (0.0-10.0); %Lymphocytes 37.2 % (21.0-51.0); %Neutrophils 46.4 % (42.0-75.0); Hemoglobin 9.1 g/dL (14.0-18.0); Mean Corpuscular HGB CONC 35.5 g/dL (32.0-36.0); Mean Corpuscular Hemoglobin 34.3 pg (27.0-31.0); Mean Corpuscular Volume 96.4 fl (80.0-94.0); Mean Platelet Volume 7.9 fL (7.4-10.4); Platelet Count 48 thou/uL (130-400); RBC Distribution Width 14.2 % (11.5-14.5); Red Blood Cell (RBC) Count 2.65 mill/uL (4.70-6.10); White Blood Cell (WBC) Count 1.9 thou/uL (4.8-10.8)
[2018-01-08 05:34] LABS: Anion Gap 10 mmol/L (10-20); BUN (Urea Nitrogen) 22 mg/dL (8.4-25.7); Calc. Creatinine Clearance 61 mL/min (70-130); Calcium 8.1 mg/dL (7.8-10.44); Carbon Dioxide 18 mmol/L (23-31); Chloride 115 mmol/L (98-107); Estimated GFR-MDRD 53; Glucose 123 mg/dL (83-110); Potassium 3.6 mmol/L (3.5-5.1); Sodium 139 mmol/L (136-145)
[2018-01-08] MEDS: Vancomycin HCl 25 MG/ML Oral PO SCH ×4 (09:06→20:21)
[2018-01-08] MEDS: Saccharomyces boulardii 250 MG CAP PO SCH (09:06)
[2018-01-08] MEDS: Mirtazapine 15 MG TAB PO SCH (09:08)
[2018-01-08] MEDS: Amlodipine 5 MG TAB PO SCH (09:08)
[2018-01-08] MEDS: Bupropion 150 MG XL TAB PO SCH (09:08)
[2018-01-08] MEDS: Rosuvastatin 10 MG TAB PO SCH (09:08)
[2018-01-08] MEDS: Levothyroxine Sodium 75 MCG TAB PO SCH (09:08)
[2018-01-08] MEDS: Multivitamin W/ Minerals 1 TAB PO SCH (09:08)
[2018-01-08] MEDS: Venlafaxine HCl XR 75 MG CAP PO SCH (09:09)
[2018-01-08] MEDS: Ondansetron ODT 4 MG TAB PO PRN ×2 (09:17→20:21)
--- NOTE | 2018-01-08 09:29 | PDOC.PN ---
- Subjective Encounter Start Date: 01/08/18 Encounter Start Time: 10:50 Subjective: Patient reports no more diarrhea. Only one stool in the past 2 days. Still -: weak but able to ambulate well and feels strong enough to go home. - Objective Resuscitation Status: Resuscitation Status FULL:Full Resuscitation MAR Reviewed: Yes Vital Signs & Weight: Vital Signs (12 hours) Temp Pulse Resp BP BP Pulse Ox 01/08/18 09:08 76 01/08/18 04:00 97.1 F L 76 16 121/67 95 01/08/18 00:00 97.8 F 73 16 130/69 95 Weight Admit Weight 173 lb 14.4 oz Weight 190 lb 1 oz I&O: 01/07/18 01/08/18 01/09/18 06:59 06:59 06:59 Intake Total 3100 1800 Output Total 1600 1575 Balance 1500 225 Result Diagrams: 01/08/18 04:55 01/08/18 04:55 Phys Exam - Physical Examination Constitutional: NAD HEENT: moist MMs Respiratory: no wheezing, no rales, no rhonchi Cardiovascular: RRR, no significant murmur Gastrointestinal: soft, non-tender, positive bowel sounds Neurological: non-focal, moves all 4 limbs Psychiatric: normal affect, A&O x 3 Dx/Plan (1) cdiff colitis Status: Acute Comment: Diarrhea resolved, switching to oral vancomycin, allergy is petros syndrome to IV only (2) WILDA (acute kidney injury) Code(s): N17.9 - ACUTE KIDNEY FAILURE, UNSPECIFIED Status: Resolved (3) H/O lymphoma Code(s): Z85.79 - PRSNL HX OF [facility] NEOPLM OF LYMPHOID, HEMATPOETC & REL TISS Status: Chronic Comment: with h/o stem cell transplant, last chemo ?>2 yrs back (4) Pancytopenia Code(s): D61.818 - OTHER PANCYTOPENIA Status: Chronic (5) Dyslipidemia Code(s): E78.5 - HYPERLIPIDEMIA, UNSPECIFIED Status: Chronic (6) Coronary artery disease Code(s): I25.10 - ATHSCL HEART DISEASE OF [place] CORONARY ARTERY W/O ANG PCTRS Status: Chronic Qualifiers: Coronary Disease-Associated Artery/Lesion type: [place] artery [place] vs. transplanted heart: [place] heart Associated angina: without angina Qualified Code(s): I25.10 - Atherosclerotic heart disease of [place] coronary artery without angina pectoris (7) Hypertension Code(s): I10 - ESSENTIAL (PRIMARY) HYPERTENSION Status: Chronic Qualifiers: Hypertension type: essential hypertension Qualified Code(s): I10 - Essential (primary) hypertension (8) S/P percutaneous endoscopic gastrostomy (PEG) tube placement Code(s): Z93.1 - GASTROSTOMY STATUS Status: Chronic Comment: for dysphagia, supplemental tube feeds as needed - Plan cont current plan of care, continue antibiotics, PT/OT, DVT proph w/SCDs Patient can go home from the colitis standpoint, however his leukopenia has -: worsened compared to his baseline of 3. Will discuss with Dr. Medhat spence -: discharge. * . - Discharge Day Encounter end time: 11:10
[2018-01-08 13:21] VITALS: BMI 27.2
--- NOTE | 2018-01-08 19:31 | PRG ---
DATE OF SERVICE: 01/08/2018 SUBJECTIVE: Mr. Willis is just starting to get up and walking in the room a little bit. His stools a re more like putting now two or three times a day. He still feels very weak, but is doing better. Jasbir zuleta is tolerating tube feeds through his PEG and he is taking some p.o. PHYSICAL EXAMINATION: VITAL SIGNS: Temperature is 97.5, pulse 73, blood pressure 134/70. He is doing physical therapy right now, I did not re-examine him. LABORATORY STUDIES: His white count 1.9, hemoglobin 9.1, platelet count 48,000. BUN and creatinine are 22 and 1.3 down from 38 and 1.7 on admission. ASSESSMENT AND PLAN: 1. Clostridium difficile colitis, marked improvement. 2. Still pretty fatigued and is really just now getting up and walking in the room. 3. More concern is his white count tends to just keep dropping. It is unclear if it was related to his infection and sepsis that he had, antibiotics for his history of lymphoma. RECOMMENDATION: I will try to keep him one more day. Keep him walking and will consider a short sta y in rehab. I think we can keep him another day and if he keeps progressing, he probably can go home . If his white count continues to drop, he is going to need to see Hematology.
[2018-01-08] MEDS ORDERED: Simethicone Chewable 80 MG TAB PO PRN (20:30)
[2018-01-08] MEDS: Sodium Chloride 0.9% 1,000 ML IV SCH (20:58)
[2018-01-08] MEDS: Tamsulosin HCl 0.4 MG CAP PO SCH (21:00)
[2018-01-09 06:02] LABS: #Eosinphils 0.1 thou/uL (0.0-0.7); #Lymphocytes 0.8 thou/uL (1.20-3.40); #Monocytes 0.2 thou/uL (0.11-0.59); #Neutrophils 1.1 thou/uL (1.40-6.50); %Basophils 0.4 % (0.0-1.0); %Eosinophils 3.8 % (0.0-10.0); %Lymphocytes 37.3 % (21.0-51.0); %Monocytes 8.9 % (0.0-10.0); %Neutrophils 49.6 % (42.0-75.0); Hemoglobin 9.4 g/dL (14.0-18.0); Mean Corpuscular HGB CONC 35.4 g/dL (32.0-36.0); Mean Platelet Volume 7.7 fL (7.4-10.4); Platelet Count 45 thou/uL (130-400); RBC Distribution Width 14.1 % (11.5-14.5); Red Blood Cell (RBC) Count 2.75 mill/uL (4.70-6.10); White Blood Cell (WBC) Count 2.2 thou/uL (4.8-10.8)
[2018-01-09] MEDS: Levothyroxine Sodium 75 MCG TAB PO SCH (06:16)
[2018-01-09 08:50] VITALS: BP 152/77
[2018-01-09] MEDS: Mirtazapine 15 MG TAB PO SCH (09:09)
[2018-01-09] MEDS: Multivitamin W/ Minerals 1 TAB PO SCH (09:09)
[2018-01-09] MEDS: Rosuvastatin 10 MG TAB PO SCH (09:09)
[2018-01-09] MEDS: Bupropion 150 MG XL TAB PO SCH (09:09)
[2018-01-09] MEDS: Saccharomyces boulardii 250 MG CAP PO SCH (09:09)
[2018-01-09] MEDS: Amlodipine 5 MG TAB PO SCH (09:09)
[2018-01-09] MEDS: Venlafaxine HCl XR 75 MG CAP PO SCH (09:09)
[2018-01-09 10:30] VITALS: TEMP 98
[2018-01-09] MEDS: Vancomycin HCl 25 MG/ML Oral PO SCH ×2 (10:46→13:00)
--- NOTE | 2018-01-10 04:40 | DIS ---
DATE OF ADMISSION: 01/04/2018 DATE OF DISCHARGE: 01/09/2018 CONDITION AT THE TIME OF DISCHARGE: Stable and improved. PRIMARY CARE PHYSICIAN: Misael Little MD DISCHARGE DIAGNOSES: 1. Clostridium difficile colitis. 2. Pancytopenia. 3. History of lymphoma, status post stem cell transplantation. 4. Coronary artery disease. 5. History of PEG-tube placement. 6. Acute kidney insufficiency. 7. Dyslipidemia. 8. Hypertension. DISCHARGE MEDICATIONS: Include vancomycin 125 mg p.o. q.i.d. for 10 more days and resume home medica tions as follows, Pristiq one tablet daily, Synthroid 1 tablet daily, amlodipine 5 mg daily, multivit pearson daily, mirtazapine 1 tablet daily, Crestor 10 mg daily, Protonix 40 mg daily, bupropion XL one t ablet daily, tamsulosin 0.4 mg daily, and Florastor 250 mg daily for 14 days. CONSULTATIONS: Inhouse include; 1. Gastroenterology, Dr. Fulton. 2. Oncology, Dr. Meléndez. HISTORY OF PRESENTING ILLNESS: Mr. Willis is a very pleasant 72-year-old male with history of lymphom a, status post stem cell transplantation, last chemo about 2 years ago, presented to the emergency ro om with complaints of generalized weakness, subjective fevers, nausea, vomiting, and on and off diarr hea. Upon presentation, he had a temperature of 101.5 with respirations are 20, pulse of 86, blood p ressure 150/73, and oxygen saturation 97% on room air. Blood cultures were obtained. He was given e mpiric antibiotics and was admitted with a presumptive diagnosis of infection likely in the colon. Jasbir zuleta had a WBC count of 3.6 and platelet count of 34. He does have history of chronic pancytopenia. He was admitted to oncology floor and was started on cefepime, Flagyl, and vancomycin and Gastroenterol ogy was consulted as well as Oncology. Please see admission history and physical for further details . HOSPITAL COURSE: The patient had a stool testing come back positive for C. diff, antigen, and toxin with PCR as well. He was started on oral vancomycin. Rest of his stool studies were negative. Bloo d cultures were negative as well. He did have significant weakness and required multiple days of fal l getting back to his baseline. Dr. Fulton followed the patient along in the hospital and once his d iarrhea subsided, he cleared him for discharge. Dr. Meléndez also consulted for his history of lymphoma and chronic pancytopenia and had no new recomm endation, but to follow up in the outpatient setting. Otherwise, the patient had improvement in his symptoms and is discharged today on oral vancomycin. [facility] has been arranged for him after I discussed the benefits of the same and he agreed to that. He was seen and examined prior to discharge. PHYSICAL EXAMINATION: Include; VITAL SIGNS: Temperature 98, pulse of 75, respirations 16, saturating 95% on room air, blood pressur e of 152/77. GENERAL: No acute distress. He does appear pale and tired, but is awake, alert, and oriented x3. CHEST: Clear to auscultation bilaterally. No wheezing. HEART: Rate and rhythm is regular. ABDOMEN: Soft, nontender, nondistended with positive bowel sounds. He will follow up with Dr. Fulton as an outpatient as well as with Dr. Meléndez and his primary care babita israel, Dr. Misael Little. He remains hemodynamically stable at the time of discharge. Discharge plan was discussed with the patient who verbalized understanding. Total time spent in the discharge of this patient was 32 minutes including [id number] interaction.
== END 2018-01-09 13:37 | disposition home health service (06) | DRG 683 ==
LOC: ERS 18:33 → 2NO 21:14 → ONC 01-06 11:07
PROVIDERS: ADMIT Internal Medicine; ATTEND Internal Medicine
DX: N17.9 Acute kidney failure, unspecified (principal); D61.818 Other pancytopenia; E87.2 Acidosis; A08.4 Viral intestinal infection, unspecified; I25.10 Atherosclerotic heart disease of native coronary artery without angina pectoris; I25.2 Old myocardial infarction; Z95.5 Presence of coronary angioplasty implant and graft; I10 Essential (primary) hypertension; Z92.21 Personal history of antineoplastic chemotherapy; K57.90 Diverticulosis of intestine, part unspecified, without perforation or abscess without bleeding; F32.9 Major depressive disorder, single episode, unspecified; F41.9 Anxiety disorder, unspecified; E78.5 Hyperlipidemia, unspecified; Z88.2 Allergy status to sulfonamides; Z88.1 Allergy status to other antibiotic agents; Z79.899 Other long term (current) drug therapy; E86.0 Dehydration; N18.3 Chronic kidney disease, stage 3 (moderate); D63.1 Anemia in chronic kidney disease; Z93.1 Gastrostomy status; Z85.79 Personal history of other malignant neoplasms of lymphoid, hematopoietic and related tissues
CPT/HCPCS: 36415; 71045; 72050; 72110; 72125; 80048; 80053; 82550; 83605; 83630; 83690; 83735; 83880; 84100; 85007; 85025; 85027; 87040; 87045; 87046; 87324; 87328; 87329; 87449; 87493; 87899; 93005; 96365; A4216; G8978-GP-CM; G8979-GP-CK; G8987-GO-CJ; G8988-GO-CH; J1956; J2550; J3475; Q0162

== ENCOUNTER 2018-07-24 12:41 | Emergency (ER) | payer MEDICARE, OTHER ==
[2018-07-24 13:49] LABS: #Eosinphils 0.1 thou/uL (0.0-0.7); #Monocytes 0.2 thou/uL (0.11-0.59); #Neutrophils 2.5 thou/uL (1.40-6.50); %Basophils 0.9 % (0.0-1.0); %Eosinophils 3.4 % (0.0-10.0); %Lymphocytes 26.3 % (21.0-51.0); %Monocytes 5.1 % (0.0-10.0); %Neutrophils 64.4 % (42.0-75.0); Hemoglobin 10.7 g/dL (14.0-18.0); Large Platelets SLIGHT; MDiff Complete? YES; Mean Corpuscular HGB CONC 33.5 g/dL (32.0-36.0); Mean Corpuscular Hemoglobin 32.1 pg (27.0-31.0); Mean Corpuscular Volume 95.7 fL (78.0-98.0); Mean Platelet Volume 9.1 fL (7.4-10.4); PLT Morphology Comment Appears Decreased; Platelet Count 61 thou/uL (130-400); RBC Distribution Width 13.6 % (11.5-14.5); Red Blood Cell (RBC) Count 3.34 mill/uL (4.70-6.10); White Blood Cell (WBC) Count 3.9 thou/uL (4.8-10.8)
[2018-07-24 13:50] LABS: ALT (SGPT) 27 U/L (8-55); AST (SGOT) 29 U/L (5-34); Albumin 4.6 g/dL (3.4-4.8); Alkaline Phosphatase 96 U/L (40-150); Anion Gap 15 mmol/L (10-20); BUN (Urea Nitrogen) 20 mg/dL (8.4-25.7); Bilirubin, Total 1.5 mg/dL (0.2-1.2); Calc. Creatinine Clearance 0 mL/min (70-130); Calcium 9.6 mg/dL (7.8-10.44); Carbon Dioxide 23 mmol/L (23-31); Chloride 111 mmol/L (98-107); Estimated GFR-MDRD 45; Globulin 2.2 g/dL (2.4-3.5); Glucose 106 mg/dL (83-110); Protein, Total 6.8 g/dL (5.8-8.1); Sodium 145 mmol/L (136-145)
--- NOTE | 2018-07-24 14:29 | ULT ---
VENOUS DOPPLER ULTRASOUND OF THE LEFT UPPER EXTREMITY: Date: 07/24/18 HISTORY: Left upper extremity edema and pain. TECHNIQUE: Hall scale ultrasound with color flow and spectral Doppler imaging of the deep venous system of the l eft upper extremity performed. FINDINGS: There is good flow, compression, and normal spectral waveforms in the deep veins of the left upper ex tremity, including the left internal jugular, subclavian, axillary, brachial, radial, ulnar, basilic, and cephalic veins. IMPRESSION: No evidence of deep venous thrombosis in the left upper extremity. POS: [facility]
--- NOTE | 2018-07-24 15:49 | RAD ---
LEFT WRIST THREE VIEWS: HISTORY: Pain and swelling in the left hand and wrist. FINDINGS: There are degenerative changes, most prominent at the first carpometacarpal joint. An old fracture o f the ulnar styloid is present. No acute fracture, dislocation, or bony destruction is identified. POS: [facility]
== END 2018-07-24 15:46 | disposition home or self-care (01) ==
LOC: SCSER 12:41
DX: L03.114 Cellulitis of left upper limb (principal); I25.10 Atherosclerotic heart disease of native coronary artery without angina pectoris; I25.2 Old myocardial infarction; E78.1 Pure hyperglyceridemia; F32.9 Major depressive disorder, single episode, unspecified; I10 Essential (primary) hypertension; Z79.899 Other long term (current) drug therapy; Z79.82 Long term (current) use of aspirin
CPT/HCPCS: 36415; 80053; 85025

== ENCOUNTER 2018-08-27 10:33 | Emergency (ER) | payer MEDICARE, OTHER ==
--- NOTE | 2018-08-27 12:56 | RAD ---
CHEST 2 VIEWS: HISTORY: Cough, chest congestion, sinus congestion, sore throat. COMPARISON: 09/04/2017. FINDINGS: The heart size is within normal limits. The lungs are clear. No pneumonia, edema, pleural effusion, or other acute process. Stable mild vertical height loss of mid lower thoracic vertebral body. IMPRESSION: No significant acute intrathoracic disease. No evidence for pneumonia. Postop changes involving the lower cervical spine and right shoulder. Atherosclerosis of the aorta with ectasia. POS: [facility]
== END 2018-08-27 12:05 | disposition home or self-care (01) ==
LOC: SCSER 10:33
DX: J20.9 Acute bronchitis, unspecified (principal); E78.1 Pure hyperglyceridemia; I25.10 Atherosclerotic heart disease of native coronary artery without angina pectoris; Z87.442 Personal history of urinary calculi; F32.9 Major depressive disorder, single episode, unspecified; Z79.82 Long term (current) use of aspirin; Z79.899 Other long term (current) drug therapy
CPT/HCPCS: 71046

== ENCOUNTER 2018-09-04 02:42 | Outpatient (CLI) | payer MEDICARE ==
[2018-09-04 10:41] LABS: INR-International Normal Ratio 1.1
[2018-09-04 10:43] LABS: PTT 21.6 SEC (22.9-36.1)
[2018-09-04 11:01] LABS: Anion Gap 15 mmol/L (10-20); BUN (Urea Nitrogen) 23 mg/dL (8.4-25.7); Calc. Creatinine Clearance 0 mL/min (70-130); Calcium 9.6 mg/dL (7.8-10.44); Carbon Dioxide 20 mmol/L (23-31); Chloride 111 mmol/L (98-107); Estimated GFR-MDRD 43; Glucose 119 mg/dL (83-110); Sodium 142 mmol/L (136-145)
== END 2018-09-04 02:43 | disposition home or self-care (01) ==
LOC: LABBT 02:42
PROVIDERS: ATTEND Surgery
DX: Z01.812 Encounter for preprocedural laboratory examination (principal); M47.12 Other spondylosis with myelopathy, cervical region
CPT/HCPCS: 80048; 85610; 85730; 87081

== ENCOUNTER 2018-09-04 10:00 | Inpatient (IN) | payer MEDICARE ==
[2018-09-04 09:31] VITALS: BMI 25.7
[2018-09-11] MEDS ORDERED: Bacitracin Zinc Ointment 30 gm TUBE ONE (06:29)
[2018-09-11] MEDS ORDERED: Sodium Chloride 0.9% 10 ML ONE (06:29)
[2018-09-11] MEDS ORDERED: Thrombin 5000 UNITS/5 ML VIAL ONE (06:29)
[2018-09-11] MEDS ORDERED: Fentanyl 100 MCG/2 ML VIAL ONE ×2 (07:23→11:44)
[2018-09-11] MEDS ORDERED: Ketamine 50 MG/ML (10ML VIAL) ONE (07:26)
[2018-09-11] MEDS ORDERED: PACU-Morphine 4MG/ML VIAL SLOW IVP PRN (09:22)
[2018-09-11] MEDS ORDERED: Promethazine HCl 25 MG/ML VIAL IM PRN ×2 (09:22→11:05)
[2018-09-11] MEDS ORDERED: Ondansetron HCl/PF 4 MG/2 ML Vial IVP PRN (09:22)
[2018-09-11] MEDS ORDERED: HYDROmorphone 2 MG/ML VIAL SLOW IVP PRN (09:22)
[2018-09-11] MEDS ORDERED: Meperidine HCl/PF 25 MG/ML VIAL SLOW IVP PRN (09:22)
[2018-09-11] MEDS ORDERED: Promethazine HCl 25 MG/ML VIAL SLOW IVP PRN (09:22)
[2018-09-11] MEDS ORDERED: Morphine Sulfate 2 MG/ML SYRINGE SLOW IVP PRN (09:22)
[2018-09-11] MEDS ORDERED: ePHEDrine 50 MG/ML VIAL ONE (10:39)
[2018-09-11] MEDS ORDERED: Ondansetron PF 4 MG/2 ML Vial ONE (10:39)
[2018-09-11] MEDS ORDERED: PROPOFOL 200 MG/20 ML VIAL ONE (10:39)
[2018-09-11] MEDS ORDERED: Glycopyrrolate 0.2 MG/ML 5 ML SYRINGE ONE (10:39)
[2018-09-11] MEDS ORDERED: Dexamethasone 20 MG/5 ML VIAL ONE (10:39)
[2018-09-11] MEDS ORDERED: Metoclopramide HCl 10 MG/2 ML VIAL ONE (10:39)
[2018-09-11] MEDS ORDERED: Lidocaine 1% PF 5 ML VIAL ONE (10:39)
[2018-09-11] MEDS ORDERED: Rocuronium Bromide 10 MG/ML (10ML VIAL) ONE (10:39)
[2018-09-11] MEDS ORDERED: Acetaminophen/Codeine 30-300mg Tablet PO PRN (11:05)
[2018-09-11] MEDS ORDERED: traMADol HCl 50 MG TAB PO PRN (11:05)
--- NOTE | 2018-09-11 11:12 | OP ---
DATE OF PROCEDURE: 09/11/2018 OPERATING ROOM: OR 12. WOUND CLASSIFICATION: Type 1 wound. 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 PROCEDURES PERFORMED: 1. C3, C4, C5 laminectomy, partial facetectomy, foraminotomy. 2. C3, C4, C5 lateral mass screw fixation for stabilization. 3. Arthrodesis with local bone autograft obtained from the same incision allograft C3-C4, C4-C5, cervical fusion C3, C4, C5, posterior lateral. DESCRIPTION OF PROCEDURE: After informed consent was obtained from the patient, the patient was brought to the OR. Proper patient pause and identification were carried out. He was placed under excellent general endotracheal anesthesia and positioned prone on the OR table. Following the placement of the Balderas lin nailhead puncher, this was secured to the table. We were pleased with the alignment at that point. We then job out a linear tabitha posteriorly to allow for approach at C3, C4, C5. This was sterilely cleansed, prepared, and draped. Proper patient pause and identification were carried out. The wound was then opened with a combination of sharp, monopolar and blunt dissection. Exposed the C3, C4, C5, dorsal spines, and lamina. Localization confirmed our area of interest. We then performed a screw jama fixation C3, C4, C5 using lateral mass trajectory and technique. Rods were placed. Final tightening occurred. We then turned our attention to the laminectomy at C3, C4, C5 with excellent decompression and common dural tube. We then decorticated the lateral masses at C3, C4, C5 bilaterally for arthrodesis at C3-C4 and C4-C5. Copious irrigation occurred throughout as did maximizing hemostasis. The wound was then closed in anatomic layers. The patient then emerged from anesthesia. Job ID: [id number]
[2018-09-11] MEDS ORDERED: CEFAZOLIN/Water 2 GM/20 ML SYRINGE SLOW IVP SCH (11:15)
[2018-09-11] MEDS ORDERED: Morphine 4 MG/ML VIAL SLOW IVP PRN (12:15)
[2018-09-11] MEDS: Sodium Chloride 0.9% 1,000 ML IV SCH (12:54)
[2018-09-11] MEDS: HYDROcodone/Acetaminophen 7.5/325 mg Tablet PO PRN ×3 (12:54→20:08)
[2018-09-11] MEDS: CEFAZOLIN 2 GM in Premix Bag 1 BAG IVPB SCH (15:39)
[2018-09-11] MEDS: Tamsulosin HCl 0.4 MG CAP PO SCH ×2 (20:09→20:11)
[2018-09-11] MEDS: Mirtazapine 15 MG TAB PO SCH (20:09)
[2018-09-11] MEDS: Rosuvastatin 10 MG TAB PO SCH (20:09)
[2018-09-12] MEDS: CEFAZOLIN 2 GM in Premix Bag 1 BAG IVPB SCH ×3 (00:06→23:21)
[2018-09-12] MEDS: HYDROcodone/Acetaminophen 7.5/325 mg Tablet PO PRN ×4 (00:06→20:39)
[2018-09-12] MEDS: Sodium Chloride 0.9% 1,000 ML IV SCH ×3 (00:10→20:52)
[2018-09-12] MEDS: tiZANidine HCl 4 MG TAB PO PRN ×2 (01:10→12:02)
[2018-09-12] MEDS: Levothyroxine Sodium 75 MCG TAB PO SCH (05:16)
[2018-09-12] MEDS: Amlodipine 5 MG TAB PO SCH (08:12)
[2018-09-12] MEDS: Bupropion 150 MG XL TAB PO SCH (08:13)
--- NOTE | 2018-09-12 09:15 | PRG ---
DATE OF SERVICE: 09/12/2018 Mr. Willis is postoperative day 1 from cervical decompression and fusion. He states he is doing well this morning with improvement in his hand function and also has had a reduction in his right leg pain. He is ambulating. He needs another day in the hospital, however, to make sure that he is stable for dismissal. Job ID: [id number]
[2018-09-12] MEDS: diphenhydrAMINE 25 MG CAP PO PRN (12:01)
[2018-09-12] MEDS: Mirtazapine 15 MG TAB PO SCH (20:37)
[2018-09-12] MEDS: Rosuvastatin 10 MG TAB PO SCH (20:37)
[2018-09-12] MEDS: Venlafaxine HCl XR 75 MG CAP PO SCH (20:38)
[2018-09-12] MEDS: Tamsulosin HCl 0.4 MG CAP PO SCH (20:40)
[2018-09-13] MEDS: Levothyroxine Sodium 75 MCG TAB PO SCH (06:06)
[2018-09-13] MEDS: Amlodipine 5 MG TAB PO SCH (08:43)
[2018-09-13] MEDS: Bupropion 150 MG XL TAB PO SCH (08:43)
[2018-09-13] MEDS: diphenhydrAMINE 25 MG CAP PO PRN ×2 (08:45→20:12)
[2018-09-13] MEDS: Acetaminophen 325 MG TAB PO PRN (11:57)
--- NOTE | 2018-09-13 16:18 | PRG ---
DATE OF SERVICE: 09/13/2018 DICTATING FOR: Ankush Myrick MD This is a postoperative recheck. Mr. Willis is now postoperative day #2, having undergone multilevel posterior cervical laminectomies and fusion. The patient has some continued incisional and bilateral paracervical neck pain. He continues to deny arm pain or paresthesias into the arms or hands. He has been walking some. The patient's notes, however, that upon attempting to sit in bed today, the patient is rather weak and has difficulty with sitting. I have asked the Physical Therapy to come by to evaluate the patient and we will keep him overnight for again adequate pain control and strength improvement. He remains with good strength in the bilateral upper extremities with intact sensation to light touch throughout. He is wearing a well-fitting [place] collar. We will hope for dismissal tomorrow, but otherwise, we will continue to monitor the patient. Job ID: [id number]
[2018-09-13] MEDS: CEFAZOLIN 2 GM in Premix Bag 1 BAG IVPB SCH ×2 (16:47→23:54)
[2018-09-13] MEDS: Sodium Chloride 0.9% 1,000 ML IV SCH ×2 (17:55→21:46)
[2018-09-13] MEDS: HYDROcodone/Acetaminophen 7.5/325 mg Tablet PO PRN (20:07)
[2018-09-13] MEDS: Venlafaxine HCl XR 75 MG CAP PO SCH (20:08)
[2018-09-13] MEDS: Mirtazapine 15 MG TAB PO SCH (20:08)
[2018-09-13] MEDS: Tamsulosin HCl 0.4 MG CAP PO SCH (20:08)
[2018-09-13] MEDS: Rosuvastatin 10 MG TAB PO SCH (20:08)
[2018-09-14] MEDS: tiZANidine HCl 4 MG TAB PO PRN ×2 (00:29→21:47)
[2018-09-14] MEDS: HYDROcodone/Acetaminophen 7.5/325 mg Tablet PO PRN ×2 (00:29→16:20)
[2018-09-14] MEDS: Levothyroxine Sodium 75 MCG TAB PO SCH (06:11)
[2018-09-14 08:53] LABS: #Eosinphils 0.1 thou/uL (0.0-0.7); #Lymphocytes 0.7 thou/uL (1.20-3.40); #Monocytes 0.4 thou/uL (0.11-0.59); #Neutrophils 3.7 thou/uL (1.40-6.50); %Basophils 0.1 % (0.0-1.0); %Eosinophils 2.2 % (0.0-10.0); %Lymphocytes 13.5 % (21.0-51.0); %Neutrophils 75.1 % (42.0-75.0); Hemoglobin 9.7 g/dL (14.0-18.0); Mean Corpuscular HGB CONC 35.1 g/dL (32.0-36.0); Mean Corpuscular Hemoglobin 34.3 pg (27.0-31.0); Mean Corpuscular Volume 97.7 fL (78.0-98.0); Platelet Count 58 thou/uL (130-400); RBC Distribution Width 13.8 % (11.5-14.5); Red Blood Cell (RBC) Count 2.82 mill/uL (4.70-6.10); White Blood Cell (WBC) Count 4.9 thou/uL (4.8-10.8)
[2018-09-14] MEDS: Amlodipine 5 MG TAB PO SCH (08:53)
[2018-09-14] MEDS: Bupropion 150 MG XL TAB PO SCH (08:53)
[2018-09-14 09:06] LABS: ALT (SGPT) 8 U/L (8-55); AST (SGOT) 19 U/L (5-34); Albumin 3.7 g/dL (3.4-4.8); Alkaline Phosphatase 74 U/L (40-150); Anion Gap 13 mmol/L (10-20); BUN (Urea Nitrogen) 32 mg/dL (8.4-25.7); Bilirubin, Total 1.4 mg/dL (0.2-1.2); Calc. Creatinine Clearance 49 mL/min (70-130); Calcium 9.2 mg/dL (7.8-10.44); Carbon Dioxide 22 mmol/L (23-31); Chloride 105 mmol/L (98-107); Estimated GFR-MDRD 45; Globulin 2.1 g/dL (2.4-3.5); Glucose 191 mg/dL (83-110); Protein, Total 5.8 g/dL (5.8-8.1); Sodium 136 mmol/L (136-145)
--- NOTE | 2018-09-14 11:30 | PRG ---
DATE OF SERVICE: 09/14/2018 Mr. Willis is postoperative day 2 from cervical decompression and fusion. His platelet count is 58. He does chronically run in the 60,000 range and his hemoglobin is 9.7. Neurologically, he feels improved compared to before surgery and is ambulating. However, he has noticed overall fatigue and lack of energy. His hemodynamics are acceptable. I do think we should give him a unit of blood and a 6-pack of platelets. I think this will help with his energy level as he recovers. Job ID: [id number]
--- NOTE | 2018-09-14 11:46 | PRG ---
DATE OF SERVICE: 09/14/2018 SUBJECTIVE: Mr. Willis is postoperative day #3, having undergone posterior cervical laminectomies and fusion. The patient continues with some weakness when sitting, although he is able to ambulate the halls. Labs today, white blood cell count is 4.9 and hemoglobin is 9.7. His sodium is at 136, so likely his fatigue and sleepiness is related to narcotics, so we will attempt to limit these today. He remains with good strength in the bilateral upper extremities without pain complaints in this region. We will likely keep him 1 more night, so that he may improve strength greer and again Physical Therapy will come back to see him. Job ID: [id number]
[2018-09-14] MEDS: Rosuvastatin 10 MG TAB PO SCH (21:47)
[2018-09-14] MEDS: Tamsulosin HCl 0.4 MG CAP PO SCH (21:47)
[2018-09-14] MEDS: Venlafaxine HCl XR 75 MG CAP PO SCH (21:47)
[2018-09-14] MEDS: Mirtazapine 15 MG TAB PO SCH (21:47)
[2018-09-15] MEDS: Levothyroxine Sodium 75 MCG TAB PO SCH (06:59)
[2018-09-15] MEDS: tiZANidine HCl 4 MG TAB PO PRN (06:59)
[2018-09-15] MEDS: Bupropion 150 MG XL TAB PO SCH (09:26)
[2018-09-15] MEDS: Amlodipine 5 MG TAB PO SCH (09:26)
[2018-09-15] MEDS: Acetaminophen 325 MG TAB PO PRN ×2 (10:55→16:42)
[2018-09-15] MEDS ORDERED: tiZANidine HCl 4 MG TAB PO PRN (11:50)
--- NOTE | 2018-09-15 12:36 | PRG ---
DATE OF SERVICE: 09/15/2018 Mr. Willis is postoperative day 4 for cervical laminectomy and fusion. He has had issues with balance when he stands up. We did give him 1 unit of blood and one six-pack of platelets yesterday as he runs chronically low in regard to his platelet count. His vital signs have been stable. His wound is healing well and neurologically appears to be at his baseline. The biggest limitation is again balance when he stands up. I have asked the nurses to assess orthostatic vital signs today. I think frankly he is adjusting to the recent treatment of his myelopathy and simply needs time. As such, I have let them know, I would be in favor of him going to inpatient rehab. We have initiated the screening process. Job ID: [id number]
[2018-09-15] MEDS: Tamsulosin HCl 0.4 MG CAP PO SCH (20:14)
[2018-09-15] MEDS: Mirtazapine 15 MG TAB PO SCH (21:32)
[2018-09-15] MEDS: Rosuvastatin 10 MG TAB PO SCH (21:32)
[2018-09-15] MEDS: Venlafaxine HCl XR 75 MG CAP PO SCH (21:32)
[2018-09-15] MEDS: Sodium Chloride 0.9% 1,000 ML IV SCH (21:33)
[2018-09-16] MEDS: Levothyroxine Sodium 75 MCG TAB PO SCH (06:46)
[2018-09-16] MEDS: HYDROcodone/Acetaminophen 7.5/325 mg Tablet PO PRN (06:47)
[2018-09-16] MEDS: Bupropion 150 MG XL TAB PO SCH (09:06)
[2018-09-16] MEDS: Amlodipine 5 MG TAB PO SCH (09:06)
--- NOTE | 2018-09-16 12:22 | PRG ---
DATE OF SERVICE: 09/16/2018 SUBJECTIVE: Mr. Willis is hospital day 5 for cervical decompression and fusion. He looks fabulous. He states he feels very good and certainly improved and his agrees. I suspect that decrease in tizanidine has helped with his cognitive function and his balance issues. I do remain convinced that he would benefit from inpatient rehab and have let he and his know. I do not think that he has been seen today per the nursing team by the inpatient rehab team. I would be in favor of him going to inpatient rehab as soon as a bed is available. Job ID: [id number]
[2018-09-16 16:01] VITALS: TEMP 97.3
[2018-09-16 16:36] VITALS: BP 189/82
[2018-09-16] MEDS: Sodium Chloride 0.9% 1,000 ML IV SCH (17:16)
--- NOTE | 2018-09-18 13:51 | PQF ---
[employer] RAYSA Rosado JASON MD [id number] SURG B- [id number] Please exercise your independent, professional judgment in responding to the clarification form. 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 All Rights Reserved Lacey [email or web address] [phone] ANTONIO
== END 2018-09-16 17:40 | DRG 472 ==
LOC: SURG A 09-11 05:58 → SURG B 09-11 11:53
PROVIDERS: ADMIT Surgery; ATTEND Surgery
PROC: 0RG10K1 Fusion of Cervical Vertebral Joint with Nonautologous Tissue Substitute, Posterior Approach, Posterior Column, Open Approach (ICD-10-PCS; principal; 2018-09-11)
PROC: 30233R1 Transfusion of Nonautologous Platelets into Peripheral Vein, Percutaneous Approach (ICD-10-PCS; 2018-09-14)
PROC: 30233N1 Transfusion of Nonautologous Red Blood Cells into Peripheral Vein, Percutaneous Approach (ICD-10-PCS; 2018-09-14)
DX: M47.12 Other spondylosis with myelopathy, cervical region (principal); Z94.84 Stem cells transplant status; M48.8X2 Other specified spondylopathies, cervical region; I10 Essential (primary) hypertension; E78.5 Hyperlipidemia, unspecified; G47.33 Obstructive sleep apnea (adult) (pediatric); I25.10 Atherosclerotic heart disease of native coronary artery without angina pectoris; C80.1 Malignant (primary) neoplasm, unspecified; D63.0 Anemia in neoplastic disease; D69.59 Other secondary thrombocytopenia; M19.90 Unspecified osteoarthritis, unspecified site; E03.9 Hypothyroidism, unspecified; T40.605A Adverse effect of unspecified narcotics, initial encounter
CPT/HCPCS: 36415; 36430; 76000; 80053; 85025; 86850; 86900; 86901; C1713; J0131; J1100; J2001; J2405; J2704; J2765; J3010; J3370; J3490; P9016; P9035; Q0163

== ENCOUNTER 2018-10-15 14:57 | Emergency (ER) | payer MEDICARE ==
--- NOTE | 2018-10-15 16:01 | RAD ---
RIGHT FOOT 3 VIEWS: Date: 10/15/18 HISTORY: Right heel pain. Patient has red area on back of heel. A radiopaque marker was placed on this area. FINDINGS/IMPRESSION: Degenerative changes are present. Small plantar calcaneal spur is present. No fracture, dislocation, or bony destruction is seen. No radiopaque foreign body is seen. If there is concern for injury to the Achilles tendon, further evaluation with MRI should be performmerlyn jernigan. POS: [facility]
== END 2018-10-15 15:55 | disposition home or self-care (01) ==
LOC: SCSER 14:57
DX: M79.671 Pain in right foot (principal); I25.10 Atherosclerotic heart disease of native coronary artery without angina pectoris; I25.2 Old myocardial infarction; E78.2 Mixed hyperlipidemia; I10 Essential (primary) hypertension; F32.9 Major depressive disorder, single episode, unspecified; F41.9 Anxiety disorder, unspecified; Z79.899 Other long term (current) drug therapy; Z79.82 Long term (current) use of aspirin

== ENCOUNTER 2018-10-17 11:19 | Emergency (ER) | payer MEDICARE | END 2018-10-17 12:04 | disposition home or self-care (01) | LOC: SCSER 11:19 | DX: L03.115 Cellulitis of right lower limb (principal); E78.1 Pure hyperglyceridemia; I10 Essential (primary) hypertension; I25.10 Atherosclerotic heart disease of native coronary artery without angina pectoris; F41.9 Anxiety disorder, unspecified; F32.9 Major depressive disorder, single episode, unspecified; Z87.442 Personal history of urinary calculi; Z79.899 Other long term (current) drug therapy; Z79.891 Long term (current) use of opiate analgesic; Z79.82 Long term (current) use of aspirin | CPT/HCPCS: 99282 ==

== ENCOUNTER 2018-10-29 11:40 | Outpatient (CLI) | payer MEDICARE ==
--- NOTE | 2018-10-29 13:20 | RAD ---
FExam: 2 views cervical spine COMPARISON: 08/11/2011 HISTORY: Cervical fusion. Follow-up exam. FINDINGS: Stable anterior fusion plate with transvertebral body screws at C5, C6 and C7. No young hard kim lucency. Stable disc prosthesis at C3 C5-C6 and C6-C7. Posterior fusion hardware at C3, C4 and C 5. No young hardware lucency. Stable anterior osteophytes from C2 through C5. No prevertebral soft tissue swelling. Predental space is normal Facet hypertrophy is unchanged. Multiple surgical clips are identified in the right neck. IMPRESSION: Uncomplicated anterior and posterior cervical fusion.
== END 2018-10-29 11:41 | disposition home or self-care (01) ==
LOC: SCSRAD 11:40
PROVIDERS: ATTEND Surgery
DX: M54.12 Radiculopathy, cervical region (principal); Z98.1 Arthrodesis status
CPT/HCPCS: 72040

== ENCOUNTER 2018-12-01 20:35 | Emergency (ER) | payer MEDICARE ==
--- NOTE | 2018-12-01 21:11 | RAD ---
Left ankle 3 views: 12/01/2018 COMPARISON: None HISTORY: Injury, pain FINDINGS: Enthesophyte formation at the level of the insertion of the Achilles tendon and origin of t he plantar aponeurosis noted. There is tibiotalar joint space narrowing and osteophyte formation. No displaced fracture or evidence of dislocation is seen. Multilevel dorsal midfoot degenerative change. IMPRESSION: Chronic findings as above. No acute fracture or dislocation.
== END 2018-12-01 21:32 | disposition home or self-care (01) ==
LOC: SCSER 20:35
DX: S93.402A Sprain of unspecified ligament of left ankle, initial encounter (principal); I25.2 Old myocardial infarction; E78.5 Hyperlipidemia, unspecified; E78.1 Pure hyperglyceridemia; I10 Essential (primary) hypertension; F41.9 Anxiety disorder, unspecified; F32.9 Major depressive disorder, single episode, unspecified; Z87.442 Personal history of urinary calculi; Z79.899 Other long term (current) drug therapy; Z79.82 Long term (current) use of aspirin; Z79.891 Long term (current) use of opiate analgesic; W01.0XXA Fall on same level from slipping, tripping and stumbling without subsequent striking against object, initial encounter

== ENCOUNTER 2018-12-26 12:13 | Outpatient (CLI) | payer MEDICARE ==
--- NOTE | 2018-12-26 15:08 | MRI ---
MRI RIGHT HIP WITHOUT CONTRAST MRI LEFT HIP WITHOUT CONTRAST: PROVIDED CLINICAL HISTORY: Bilateral hip pain, right greater than left for 1 year. FINDINGS: On the right, there is increased signal intensity on fluid sensitive sequences and mild heterogeneity involving the distal, insertional portions of the right gluteus minimus tendon. The right hip flexo rs, abductors, adductors, and hamstring tendons demonstrate an otherwise unremarkable MR appearance. On the left, there are mild changes of tendinosis involving the insertional left gluteus medias tendo n. The left hip flexors, abductors, adductors, and hamstring tendons demonstrate an otherwise normal MR appearance. The acetabular shan and femoral acetabular articular cartilage are not optimally evaluated in the ab sence of joint distention but appear grossly normal. The amounts of fluid within each hip joint are physiologic. No focal concerning regional marrow or muscular signal abnormality is evident. The courses of the re gional major neurovascular structures appear unremarkable. IMPRESSION: 1. Tendinosis and low-grade nonattenuating interstitial tearing involving the right gluteus minimus tendon at its insertion. 2. Left gluteus medias insertional tendinopathy. POS: [facility]
--- NOTE | 2018-12-26 15:38 | RAD ---
CERVICAL SPINE FOUR VIEWS: 12/26/2018 HISTORY: Neck pain and spondylosis. Cervical spine surgery two months ago. COMPARISON: 10/29/2018 FINDINGS: There is multilevel postoperative hardware associated with the cervical spine. This includes posteri or pedicle screws at C3, C4, and C5 bilaterally, with vertically oriented interlocking rods. There i s also anterior diskectomy and fusion hardware at C5-C6 and C6-C7. There is anterior osteophyte form ation at C2-C3, C3-C4, and C4-C5. Bilateral laminectomy changes are noted at C3, C4, and C5. There is anterolisthesis at C7-T1, measuring approximately 3 mm. There is prominent bilateral facet hypertrophy, right greater than left, most significant at the C4-C5 level. No prevertebral soft tiss ue swelling. No significant interval change noted. IMPRESSION: Multilevel postoperative and degenerative change involving the cervical spine, as detailed above. POS: [facility]
== END 2018-12-26 12:14 | disposition home or self-care (01) ==
LOC: SCSMRI 12:13
PROVIDERS: ATTEND Surgery
DX: M25.551 Pain in right hip (principal); M25.552 Pain in left hip; M47.12 Other spondylosis with myelopathy, cervical region; Z98.890 Other specified postprocedural states
CPT/HCPCS: 72040